=== PATIENT | female | born 1945 | race Caucasian/White ===

== ENCOUNTER 2019-05-30 17:16 | Inpatient (IN) | payer MEDICARE, OTHER, SELFPAY ==
[2019-05-30] VITALS (7 sets, daily range): BP systolic 146–181; BP diastolic 46–79; PULSE 51–67; RESP 14–20; TEMP 36.6–37.1; O2SAT 94–95; BMI 22.6
--- NOTE | 2019-05-30 17:45 | CTR_ITS ---
PROCEDURE INFORMATION: Exam: CT Head Without Contrast Exam date and time: 05/30/2019 6:30 PM Age: 74 years old Clinical indication: Pain; Dizziness; Headache; Patient HX: HX stroke TECHNIQUE: Imaging protocol: Computed tomography of the head without contrast. Total DLP: 816.83 mGy-cm Radiation optimization: All CT scans at this facility use at least one of these dose optimization techniques: automated exposure control; mA and/or kV adjustment per patient size (includes targeted exams where dose is matched to clinical indication); or iterative reconstruction. COMPARISON: No relevant prior studies available. FINDINGS: The ventricles, sulci and basilar cisterns are normal for the patient's stated age. There are mild areas of decreased attenuation in the periventricular white matter which is nonspecific but likely relates to small vessel ischemic change. There is no evidence for acute infarct. There is no evidence for mass. There is no hemorrhage. There are no extra-axial fluid collections. There is no midline shift. The skull is intact. The visualized paranasal sinuses are well aerated. There is atherosclerotic change of the cavernous carotid arteries. CT/CT head wo con* [id number] IMPRESSION: No evidence for acute infarct, mass or hemorrhage. Radiation Dose CTDIVOL = (mGy): DLP = 816.83 (mGy-cm)
[2019-05-30 18:26] LABS: Basophils % 0.2 %; Eosinophils # 0.1 10^3/uL (0.0-0.8); Eosinophils % 0.8 %; Hematocrit 38.5 % (37.0-47.0); Hemoglobin 12.9 g/dL (11.5-15.3); Lymphocytes # 3.4 10^3/uL (0.8-4.8); Lymphocytes % 34.6 %; Mean Corpuscular HGB Conc 33.5 g/dL (30.0-36.0); Mean Corpuscular Hemoglobin 30.4 pg (28.0-34.0); Mean Corpuscular Volume 90.6 fL (81-99); Mean Platelet Volume 10.7 fL (7.4-10.4); Monocytes # 0.8 10^3/uL (0.2-0.9); Monocytes % 7.9 %; Neutrophils # 5.5 10^3/uL (1.8-7.7); Neutrophils % 56.3 %; Nucleated Red Blood Cells % 0 %; Platelet Count 260 10^3/cmm (130-400); Red Blood Count 4.25 10^6/uL (4.1-5.3); Red Cell Distribution Width 12.7 % (12.1-15.1); White Blood Count 9.8 10^3/uL (4.0-10.0)
--- NOTE | 2019-05-30 18:28 | ECG_ITS ---
Measurements Intervals [place] Rate: 53 P: 66 AR: 179 QRS: 27 QRSD: 88 T: 8 QT: 437 QTc: [address] & T-WAVE ABNORMALITY No previous ECG available for comparison Electronically Signed On 05-31-2019 20:22:07 ADVERTISEMENT COMPOSITOR by Dash Beltran M.D. [email or web address]
[2019-05-30 18:44] LABS: Alanine Aminotransferase 13 U/L (0-33); Albumin Level 4.5 g/dL (3.5-5.2); Alkaline Phosphatase 115 IU/L (35-105); Aspartate Amino Transferase 15 U/L (0-32); Blood Urea Nitrogen 16 mg/dL (8-23); Calcium 9.7 mg/Dl (8.8-10.2); Carbon Dioxide 24 mmol/L (22-29); Chloride 101 mmol/L (98-107); Globulin 2.6 g/dL (1.3-4.6); Glucose 136 mg/dL (74-106); Sodium 138 mmol/L (136-145); Total Bilirubin 0.2 mg/dL (0.15-1.2); Total Protein 7.1 g/dL (6.6-8.7)
--- NOTE | 2019-05-30 19:08 | ED_ITS ---
Entered by Lisa Crane, acting as scribe for May 30, 2019 17:16 HPI - Headache General: Chief Complaint: Headache Stated Complaint: stroke like symptoms Time Seen by Provider: 05/30/19 19:10 Source: patient Mode of arrival: wheelchair Limitations: no limitations History of Present Illness: HPI Narrative: 74 yo Female presents to ED with complaint of episodes of feeling dizzy, light headed, and having headaches. Pt states that she had an episode yesterday. Pt states that she had had 2 episodes today. Pt's family states that when she arrived to the ER from [place], the patient has new left side facial droop. Pt has an NIHSS of 1. MD elicited complaint: headache Onset description: gradually Location: other (top of head) Pain scale (0-10): 6 Quality & Timing: intermittent Exacerbating factors: sitting/standing Relieving factors: nothing Associated symptoms: Reports lightheadedness and pre-syncope; Deny chest pain, fever(s), nausea, rash or vomiting Treatments prior to arrival: none Review of Systems General: Reports: 10 or more systems reviewed and unremarkable except in HPI and below Const: Denies: fever, chills or body aches Eyes: Denies: change in vision, blurry vision or blind spots ENMT: Denies: throat pain, painful swallowing, hoarseness or mouth pain Card: Reports: lightheadedness and pre-syncope; Denies: chest pain, palpitations, irregular heart rhythm or swelling of feet/ankles Resp: Denies: shortness of breath, productive cough or non-productive cough GI: Denies: abdominal pain, nausea or vomiting : Denies: flank pain, difficulty urinating, painful urination, urinary frequency or urinary urgency Musc: Denies: neck pain, back pain, extremity pain or extremity swelling Skin/Breast: Denies: rash, itching or redness Neuro: Reports: headache and dizziness; Denies: numbness in extremities or weakness in extremities PFSH ED PFSH: Statuses (acute, chronic, etc) shown below reflect problem list status as previously entered and may not be historically accurate Medical History (Updated 05/30/19 @ 22:55 by Theresa Greene MD, [facility] [place] Dyslipidemia (Acute) Supraventricular tachycardia (Acute) Tachyarrhythmia (Acute) Urinary incontinence (Acute) Uterovaginal prolapse (Acute) Surgical History (Updated 05/30/19 @ 21:54 by Delmy Triana MD) History of cardiac cath (Acute) History of vaginal hysterectomy (Acute) Hx of cholecystectomy (Acute) Hx of tubal ligation (Acute) Family History (Updated 05/30/19 @ 21:54 by Delmy Triana MD) Father CAD (coronary artery disease) Other Hypertension Social History Smoking and tobacco status: never smoked Physical Exam Const: COMMON NORMALS: no apparent distress, average body habitus, oriented x3, no limitations, healthy appearing, alert and well nourished HENMT: COMMON NORMALS: normocephalic, head/scalp atraumatic, external ears normal, EAC's normal and TM's normal bilaterally HEAD & SCALP: normocephalic and atraumatic FACE & SINUS: flattened naso-labial fold Left EXTERNAL EAR: Yes external ears normal EXTERNAL AUDITORY CANAL: EAC's normal TYMPANIC MEMBRANE: TM's normal bilaterally Eye: COMMON NORMALS: PERRL, EOMs intact bilaterally, conjunctivae normal, no scleral icterus and normal visual isidro by confrontation CONJUNCTIVA: Yes conjunctivae normal PUPIL: Yes PERRL Neck/C-Spine: COMMON NORMALS: full ROM, supple, no meningeal signs, no JVD and no carotid bruits Chest: COMMONS NORMALS: inspection of chest normal and palpation of chest normal Resp: COMMON NORMALS: normal respiratory effort, no retractions, no use of accessory muscles, clear to auscultation bilaterally and percussion normal AUSCULTATION: clear to auscultation bilaterally PERCUSSION: percussion normal Cardio: COMMON NORMALS: no JVD, regular rate, regular rhythm, S1 normal heart sound, S2 normal heart sound, no gallops, no clicks, no murmurs, no rub and peripheral pulses 2+ throughout RATE: regular rate RHYTHM: regular rhythm HEART SOUNDS: S1 normal and S2 normal PERIPHERAL PULSES: pulses 2+ throughout GI: COMMON NORMALS: normal to inspection, nondistended, normoactive bowel sounds, soft to palpation, non-tender, no hepatosplenomegaly, no masses and no bruits PALPATION: Yes soft and Yes no hepatosplenomegaly : COMMON NORMALS: Yes no CVA tenderness BLADDER/KIDNEY EXAM: Yes no CVA tenderness Back/Pelvis: COMMON NORMALS: no CVA tenderness Extremity: COMMON NORMALS: normal to inspection, full ROM, normal capillary refill, no joint enlargement, no clubbing, cyanosis or edema, no calf tenderness and no pedal edema Neuro: COMMON NORMALS: oriented x3 SENSORIUM/ORIENTATION: Yes alert MENINGEAL SIGNS: Yes no meningeal signs COORDINATION/BALANCE: qbjnxz-wa-qvkd test normal, hvzg-ja-bsvh test normal and tandem gait normal GAIT: Yes normal gait COORDINATION: dkxlso-ji-udft test normal, ffnt-hl-xqvm test normal and tandem gait normal Skin: COMMON NORMALS: no rashes or lesions noted, no wounds, skin turgor normal, no jaundice, no petechiae and no mottling GENERAL SKIN EXAM: no rashes or lesions noted and turgor normal Course Consultations: Consultation #1: Discussed patient with the neurologist on-call Dr. Barrera. After discussing NIH score with him, 1, was decided that the patient does not meet the criteria for thrombolytics. She should be admitted for a stroke work-up. Vital Signs: Vital signs: Vital Signs Temperature 97.8 F 05/30/19 17:24 Pulse Rate 54 L 05/30/19 21:47 Respiratory Rate 14 05/30/19 21:47 Blood Pressure 146/55 05/30/19 21:47 Pulse Oximetry 95 05/30/19 21:47 MDM - Headache MDM Narrative: Medical decision making narrative: 74-year-old female patient with a prior history of a CVA who presents to the emergency department with complaint of headache. While she was in the waiting room she was noticed to develop left-sided facial droop and drooling out of the left side of her mouth. NIH score was however 1. Because of a low NIH score she is admitted to the hospital overnight for stroke work-up. Lab Data: Labs: Lab Results 05/30/19 05/30/19 05/30/19 Range/Units 18:17 18:17 18:17 WBC 9.8 (4.0-10.0) 10^3/ uL RBC 4.25 (4.1-5.3) 10^6/u L Hgb 12.9 (11.5-15.3) g/dL Hct 38.5 (37.0-47.0) % MCV 90.6 (81-99) fL MCH 30.4 (28.0-34.0) pg MCHC 33.5 (30.0-36.0) g/dL RDW 12.7 (12.1-15.1) % Plt Count 260 (130-400) 10^3/c mm MPV 10.7 H (7.4-10.4) fL Neut % (Auto) 56.3 % Lymph % (Auto) 34.6 % Pine % (Auto) 7.9 % Eos % (Auto) 0.8 % Baso % (Auto) 0.2 % Neut # (Auto) 5.5 (1.8-7.7) 10^3/u L Lymph # (Auto) 3.4 (0.8-4.8) 10^3/u L Pine # (Auto) 0.8 (0.2-0.9) 10^3/u L Eos # (Auto) 0.1 (0.0-0.8) 10^3/u L Baso # (Auto) 0.0 (0.0-0.1) 10^3/u L Nucleated RBC % (a uto) 0 % Nucleated RBCs # 0.0 /100WBC PT 14.00 H (10.5-13.3) SECO NDS INR 1.04 (0.8-1.2) APTT 36.1 (23.9-36.7) SECO NDS Sodium 138 (136-145) mmol/L Potassium 4.0 (3.5-5.1) mmol/L Chloride 101 (98-107) mmol/L Carbon Dioxide 24 (22-29) mmol/L Anion Gap 17.0 (5-19) BUN 16 (8-23) mg/dL Creatinine 1.1 H (0.5-0.9) mg/dL Glucose 136 H (74-106) mg/dL POC Glucose (70-110) mg/dL Calcium 9.7 (8.8-10.2) mg/Dl Total Bilirubin 0.2 (0.15-1.2) mg/dL AST 15 (0-32) U/L ALT 13 (0-33) U/L Alkaline Phosphata se 115 H (35-105) IU/L Total Protein 7.1 (6.6-8.7) g/dL Albumin 4.5 (3.5-5.2) g/dL Globulin 2.6 (1.3-4.6) g/dL Urine Color (Yellow) Urine Appearance (CLEAR) Urine pH (5-7) Ur Specific Gravit y (1.005-1.030) Urine Protein (Negative) Urine Glucose (UA) (Normal) Urine Ketones (Negative) Urine Occult Blood (Negative) Urine Nitrate (Negative) Urine Bilirubin (NEGATIVE) Urine Urobilinogen (Negative) mg/dL Ur Leukocyte Malina ase (Negative) Urine Opiates Scre en (Negative) ng/mL Ur Barbiturates Sc reen (Negative) ng/mL Ur Phencyclidine S crn (Negative) ng/mL Ur Amphetamines Sc reen (Negative) ng/mL U Benzodiazepines Scrn (Negative) ng/mL Urine Cocaine Scre en (Negative) ng/mL U Marijuana (THC) Screen (Negative) ng/mL 05/30/19 05/30/19 05/30/19 Range/Units 20:07 20:30 20:30 WBC (4.0-10.0) 10^3/ uL RBC (4.1-5.3) 10^6/u L Hgb (11.5-15.3) g/dL Hct (37.0-47.0) % MCV (81-99) fL MCH (28.0-34.0) pg MCHC (30.0-36.0) g/dL RDW (12.1-15.1) % Plt Count (130-400) 10^3/c mm MPV (7.4-10.4) fL Neut % (Auto) % Lymph % (Auto) % Pine % (Auto) % Eos % (Auto) % Baso % (Auto) % Neut # (Auto) (1.8-7.7) 10^3/u L Lymph # (Auto) (0.8-4.8) 10^3/u L Pine # (Auto) (0.2-0.9) 10^3/u L Eos # (Auto) (0.0-0.8) 10^3/u L Baso # (Auto) (0.0-0.1) 10^3/u L Nucleated RBC % (a uto) % Nucleated RBCs # /100WBC PT (10.5-13.3) SECO NDS INR (0.8-1.2) APTT (23.9-36.7) SECO NDS Sodium (136-145) mmol/L Potassium (3.5-5.1) mmol/L Chloride (98-107) mmol/L Carbon Dioxide (22-29) mmol/L Anion Gap (5-19) BUN (8-23) mg/dL Creatinine (0.5-0.9) mg/dL Glucose (74-106) mg/dL POC Glucose 100 (70-110) mg/dL Calcium (8.8-10.2) mg/Dl Total Bilirubin (0.15-1.2) mg/dL AST (0-32) U/L ALT (0-33) U/L Alkaline Phosphata se (35-105) IU/L Total Protein (6.6-8.7) g/dL Albumin (3.5-5.2) g/dL Globulin (1.3-4.6) g/dL Urine Color Straw (Yellow) Urine Appearance Clear (CLEAR) Urine pH 6 (5-7) Ur Specific Gravit y 1.005 (1.005-1.030) Urine Protein Neg (Negative) Urine Glucose (UA) Norm (Normal) Urine Ketones Negative (Negative) Urine Occult Blood Neg (Negative) Urine Nitrate Negative (Negative) Urine Bilirubin Neg (NEGATIVE) Urine Urobilinogen Norm (Negative) mg/dL Ur Leukocyte Malina ase Negative (Negative) Urine Opiates Scre en Negative (Negative) ng/mL Ur Barbiturates Sc reen Negative (Negative) ng/mL Ur Phencyclidine S crn Negative (Negative) ng/mL Ur Amphetamines Sc reen Negative (Negative) ng/mL U Benzodiazepines Scrn Negative (Negative) ng/mL Urine Cocaine Scre en Negative (Negative) ng/mL U Marijuana (THC) Screen Negative (Negative) ng/mL Imaging Data^: CT Head: Radiologist's impression: [address] [address] [address] Scan Report Signed Patient: Linda Loaiza #: [id number] : 5Acct#:[id number] Age/Sex: 74 / FADM Date: 05/30/19 Loc: ERRoom/Bed: Attending Dr: Ordering Provider/Ordering MD: Troy West DO Date of Service: 05/30/19 Procedure(s): CT head wo con* [id number] Accession Number(s): [id number] Report Number: [id number] PROCEDURE INFORMATION: Exam: CT Head Without Contrast Exam date and time: 05/30/2019 6:30 PM Age: 74 years old Clinical indication: Pain; Dizziness; Headache; Patient HX: HX stroke TECHNIQUE: Imaging protocol: Computed tomography of the head without contrast. Total DLP: 816.83 mGy-cm Radiation optimization: All CT scans at this facility use at least one of these dose optimization techniques: automated exposure control; mA and/or kV adjustment per patient size (includes targeted exams where dose is matched to clinical indication); or iterative reconstruction. COMPARISON: No relevant prior studies available. FINDINGS: The ventricles, sulci and basilar cisterns are normal for the patient's stated age. There are mild areas of decreased attenuation in the periventricular white matter which is nonspecific but likely relates to small vessel ischemic change. There is no evidence for acute infarct. There is no evidence for mass. There is no hemorrhage. There are no extra-axial fluid collections. There is no midline shift. The skull is intact. The visualized paranasal sinuses are well aerated. There is atherosclerotic change of the cavernous carotid arteries. CT/CT head wo con* [id number] IMPRESSION: No evidence for acute infarct, mass or hemorrhage. Radiation Dose CTDIVOL = (mGy): DLP = 816.83 (mGy-cm) Dictated By:Rm Flower MD Signed By:Rm Flower MDSigned Date/Time:05/30/191900 DD/ 99 EKG Data^: EKG 1: Attestation: I personally reviewed and interpreted this EKG as follows: EKG interpretation date: 05/30/19 EKG interpretation time: 20:16 Prior EKG tracings: not available for review Interpretation: Sinus bradycardia. Heart rate 53. Mild ST depression in lead II. No other ST changes. Normal axis. EKG 2: EKG interpretation date: 05/30/19 EKG interpretation time: 22:35 Prior EKG tracings: available for review Interpretation: No changes from earlier today. Discharge Plan Discharge Patient Disposition: Placed in Observation Admit Provider: Delmy Triana Clinical Impression: Ischemic stroke Condition: Stable Coding Level of Care Code ED Furnace Brazer for Chg Fwd Exam Problem Focused The documentation recorded by the Rosa Maria najera Carmen, accurately reflects the service I personally performed and the decisions made by Jc moseley Adegoke I, MD, [facility] [place] May 30, 2019 17:16
--- NOTE | 2019-05-30 19:22 | ECG_ITS ---
Measurements Intervals [place] Rate: 53 P: 66 MA: 179 QRS: 27 QRSD: 88 T: 8 QT: 437 QTc: [address] & T-WAVE ABNORMALITY No previous ECG available for comparison Electronically Signed On 05-31-2019 20:22:12 FLEET MANAGER by Dash Beltran M.D. [id number]
[2019-05-30 19:49] LABS: INR 1.04 (0.8-1.2)
[2019-05-30 19:50] LABS: Partial Thromboplastin Time 36.1 SECONDS (23.9-36.7)
--- NOTE | 2019-05-30 20:06 | PC.NURSE ---
Stroke alert. Patient reports she has not been feeling well since this Wednesday, has had a headache and palpitations in her stomach. Patient presents to ED with complaints of headache and stroke like symptoms. While in waiting room, a family member (who just arrived to see patient) told triage nurse that patient was slurred and drooling. I asked the patient when the drooling started and she reports she didn't even know she was drooling. Patient reports she had similar symptoms 4 years ago and received TPA for that. She reports she has had sensation changes and numbness since the prior stroke. Patient is not a TPA candidate due to Last Known Normal being greater than 4.5 hours. Patient educated on stroke s/s and has no further questions.
[2019-05-30 20:12] LABS: Glucose Point of Care 100 mg/dL (70-110)
[2019-05-30 20:46] LABS: Add Urine Microscopic? NO
[2019-05-30 20:52] LABS: Amphetamines Screen Urine Negative (Negative); Barbiturates Screen Urine Negative (Negative); Benzodiazepines Screen Urine Negative (Negative); Cocaine Screen Urine Negative (Negative); Opiate Screen Urine Negative (Negative); PCP Screen Urine Negative (Negative)
[2019-05-30 20:53] LABS: THC Screen Urine Negative (Negative)
[2019-05-30 20:54] LABS: Bilirubin Urine Neg (NEGATIVE); Blood Urine Neg (Negative); Glucose Urine UA Norm (Normal); Ketones Urine Negative (Negative); Leukocyte Esterase Urine Negative (Negative); Nitrate Urine Negative (Negative); Protein Urine Neg (Negative); Specific Gravity, Urine 1.005 (1.005-1.030); Urine Appearance Clear (CLEAR); Urine Color Straw (Yellow); Urobilinogen Urine Norm (Negative); pH Urine 6 (5-7)
--- NOTE | 2019-05-30 21:48 | P.HP_ITS ---
Providers/Chief Complaint Chief Complaint: CVA History of Present Illness Alyson Loaiza is a 74 year old female who carries diagnosis of tachyarrhythmia(svt) in the past, dyslipidemia, urinary incontinence, hypertension who presented to the emergency department chief complaint of headache, left-sided facial droop. Daughter is at the bedside who is endorsing that her mother was babysitting her granddaughter all day and she has not noticed any change in her facial symmetry or speech, when her daughter came to pick her child at that time she noticed that she is suffering from stroke like symptoms left-sided facial droop, slurred speech. She was brought to ER for further evaluation secondary to NIH score of 1 TPA was not administered after ruling of hemorrhagic stroke. Patient is stating that on Wednesday she started having palpitations which she she usually does and takes atenolol for that, palpitations occur on and off without any inciting or relieving factors they would last for at least 36 hours, she has never been diagnosed with atrial fibrillation, on Wednesday she experienced dizzy spells, she experienced 2 dizzy spells on Wednesday but she never experienced any falls, loss of consciousness, fever, chills, diarrhea urinary or bowel incontinence. She is endorsing that previously she had a stroke which affected her left side of the body she gets numbness and sensory deficit of left side with mild weakness of left arm otherwise she has been pretty independent and she has been enjoying her day-to-day life, she is independent for daily activities, she drives and enjoys babysitting her granddaughters. Only symptom she experienced during this episode was headache on the right side which is currently 5/10, dull. She has not noticed any increase in her weakness of ex tremities, blurry vision. Diagnostics in ER showed hypertension, bradycardia, EKG shows sinus bradycardia, CTA head negative for hemorrhage, Not a candidate of TPA Hospital service was requested for further evaluation of stroke Review of Systems Const: Denies: fever, chills or change in appetite Eyes: Denies: change in vision ENMT: Denies: throat pain Card: Reports: palpitations, lightheadedness and pre-syncope Resp: Denies: shortness of breath GI: Denies: abdominal pain, nausea or vomiting : Denies: flank pain Musc: Denies: neck pain or back pain Skin/Breast: Denies: rash Neuro: Reports: headache, numbness in extremities, weakness in extremities, difficulty walking, dizziness and slurred speech Psych: Denies: anxiety or depression Endo: Denies: excessive urination Rajinder/Lymph: Denies: easy bruising All/Imm: Denies: hives Medications/Allergies Allergies Allergy/AdvReac Type Severity Reaction Status Date / Time No Known Allergies Allergy Verified 05/30/19 17:24 PFSH Acute PFSH: Statuses (acute, chronic, etc) shown below reflect problem list status as previously entered and may not be historically accurate Medical History (Updated 05/30/19 @ 22:47 by Delmy Triana MD) Dyslipidemia (Acute) Supraventricular tachycardia (Acute) Tachyarrhythmia (Acute) Urinary incontinence (Acute) Uterovaginal prolapse (Acute) Surgical History (Updated 05/30/19 @ 21:54 by Delmy Triana MD) History of cardiac cath (Acute) History of vaginal hysterectomy (Acute) Hx of cholecystectomy (Acute) Hx of tubal ligation (Acute) Family History (Updated 05/30/19 @ 21:54 by Delmy Triana MD) Father CAD (coronary artery disease) Other Hypertension Social History Smoking and tobacco status: never smoked Vitals/I&O/Wt Last Vital Signs Temp 97.8 F 05/30/19 17:24 Pulse 53 L 05/30/19 20:21 Resp 16 05/30/19 20:09 BP 146/54 05/30/19 20:21 Pulse Ox 95 05/30/19 20:09 Weight last 48 hrs Weight 58.967 kg Physical Exam Narrative: EXAM NARRATIVE: Appears stated age, Comfortable in her bed Left-sided facial droop with some drooling of saliva EOMI, PERRLA Motor strength 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 is weaker as compared to the right 1 which patient is stating that is chronic for her, no signs of cerebellar deficit, No dysdiadochokinesia Notable to elicit hemineglect Sensory deficit at the left ankle area Good strength of lower extremity on hip flexion and extension, plantarflexion and dorsiflexion bilaterally No tongue deviation Reflexes equivocal S1, S2 bradycardia no JVD signs of heart failure Abdomen soft nontender nondistended bowel so present Respiratory exam shows clear to auscultation without any adventitious sounds Skin exam shows no signs of ischemia gangrene or ulcer Psych: Appropriate mood and affect Data : 05/30/19 18:17 05/30/19 18:17 A&P Assessment and plan (1) Ischemic stroke: Status: Acute Code(s): I63.9 - Cerebral infarction, unspecified (2) Hypertension: Status: Acute Code(s): I10 - Essential (primary) hypertension (3) Sinus bradycardia: Status: Acute Code(s): R00.1 - Bradycardia, unspecified Additional A&P Information Nonhemorrhagic acute stroke Left-sided facial droop, with numbness and mild weakness of left-sided extremities I would allow permissive hypertension for 48 to 72 hours, hold losartan Speech evaluation in the morning, physical therapy evaluation She has been on Plavix I would use aspirin and Plavix combination for at least 21 days with high-dose statins Lipitor 80 mg CTA head and neck for vascular anatomy Because of stroke is still unknown but my suspicion for atrial fibrillation is h igh considering her history of tachyarrhythmia She might need Holter monitoring for 2-3weeks on outpatient settings Echo in the morning History of tachyarrhythmia Clinically she is in sinus bradycardia I would hold the dose of atenolol to capture her arrhythmia Dyslipidemia: I have added high-dose statins Permissive hypertension because of nonhemorrhagic stroke TIFFANY secondary to dehydration Anticipate improvement will fluid resuscitation Full code DVT prophylaxis: Heparin Attestations Medical Necessity Statement*: Anticipating her stay to cross more than 2 midnights, patient needs inpatient stay because she lives alone and with this recent stroke needs appropriate discharge planning, evaluation of stroke, PT and speech evaluation and probably Holter monitoring Time Spent in Patient Care: (>than 50% of time spent in counselling and/or direct pt care on unit) . 50 Coding Level of Care Code Acute Engineering Operations Leader for Yudy Miranda Diagnoses Ischemic stroke I63.9 Hypertension I10 Sinus bradycardia R00.1
--- NOTE | 2019-05-30 22:00 | ECG_ITS ---
Measurements Intervals [place] Rate: 53 P: 40 HI: 181 QRS: 5 QRSD: 106 T: 0 QT: 442 QTc: 419 SINUS BRADYCARDIA MINIMAL VOLTAGE CRITERIA FOR LVH, CONSIDER NORMAL VARIANT [MEETS CRITERIA IN ONE OF: R(aVL), S(V1), R(V5), R(V5/V6)+S(V1)] NONSPECIFIC ST & T-WAVE ABNORMALITY No previous ECG available for comparison Electronically Signed On 05-31-2019 20:22:32 SPARE HAND CARDING by Dash Beltran M.D. [email or web address]
[2019-05-31 00:16] LABS: Thyroid Stimulating Hormone 4.33 uIU/mL (0.27-4.20)
[2019-05-31] MEDS: heparin 5,000 unit/mL INJ 1 mL 5000 UNIT SUBCUT (00:46)
[2019-05-31] MEDS: atorvastatin 40 mg Tablet 80 MG PO (00:48)
[2019-05-31] MEDS: clopidogrel 75 mg Tablet PO (00:48)
[2019-05-31] MEDS: iodixanol 320 mg/mL 100mL Btl IV (02:24)
[2019-05-31 04:00] VITALS: BP 191/68; PULSE 63; RESP 18; TEMP 37.2; O2SAT 92
--- NOTE | 2019-05-31 04:16 | PM.TDS ---
Transfer Summary Providers Date of Admission: 05/30/19 21:29 Date of Discharge: 05/31/19 Attending Provider at Admission: Delmy Triana MD Attending Provider at Transfer: Delmy Triana MD Anticipated Date of Transfer: Anticipated date of transfer: 05/31/19 Receiving Facility & Provider: Receiving Provider: [] Receiving facility: [] Diagnoses at Discharge Discharge Diagnosis (1) Ischemic stroke: Status: Acute (2) Hypertension: Status: Acute (3) Sinus bradycardia: Status: Acute Reason for Visit Reason for Visit: Reason For Visit: CVA Hospital Course Hospital Course: Alyson Loaiza is a 74 year old female who carries diagnosis of tachyarrhythmia(svt) in the past, dyslipidemia, urinary incontinence, hypertension who presented to the emergency department chief complaint of headache, left-sided facial droop. Daughter is at the bedside who is endorsing that her mother was babysitting her granddaughter all day and at that time she had not noticed any changes in her facial symmetry or speech, but when her daughter came to pick her child in the evening she noticed that she is suffering from stroke like symptoms i.e. left-sided facial droop, slurred speech and she was dragging her right foot. She was brought to ER for further evaluation secondary to initial NIH score of 1 and nonspecific time for development of symptoms TPA was not administered after ruling of hemorrhagic stroke. Code stroke was called by ER physician. Patient is stating that on Wednesday she started having palpitations which she usually does experience and takes atenolol for that, palpitations occur on and off without any inciting or relieving factors they would last for at least 36 hours, she has never been diagnosed with atrial fibrillation, on Wednesday she experienced dizzy spells, she experienced 2 dizzy spells on Wednesday but she never experienced any falls, loss of consciousness, fever, chills, diarrhea urinary or bowel incontinence. She is endorsing that previously she had a stroke which affected her left side of the body she gets numbness and sensory deficit of left side with mild weakness of left arm otherwise she has been pretty independent and she has been enjoying her day-to-day life, she is independent for daily activities, she drives and enjoys babysitting her granddaughters. Only symptom she experienced during this episode was headache on the right side which is currently 5/10, dull. She has not noticed any increase in her weakness of extremities, blurry vision. Diagnostics in ER showed hypertension systolic blood pressure 150, bradycardia heart rate 58-60, EKG shows sinus bradycardia, CTA head negative for hemorrhage, Hospital service was requested for further evaluation of stroke, on my assessment NIH score was 5 CTA head and neck was ordered which showed cardioembolic phenomenon at right middle cerebral artery at the junction of M1 and M2, consult was contacted for interventional approach. She was accepted at [address] room [address] DEL ROSARIO accepted the patient considering NIH 5 and neuroimaging. I have not detected atrial fibrillation on EKG or on her telemetry, would continue with aspirin, Plavix and high-dose statins for now with permissive hypertension. Discharge Summary: Please review hospital course Reason of transfer: Patient has proximal right middle cerebral artery cardioembolic phenomenon which is intervene able, [facility] has accepted the patient, the services are not being provided at our hospital, considering NIH 5 and neuroimaging she is a good candidate for such procedure. 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 as compared to the right 3/5 , no signs of cerebellar deficit, No dysdiadochokinesia No hemineglect Sensory deficit present at the left ankle area Good strength of lower extremity on hip flexion and extension, plantarflexion and dorsiflexion bilaterally 4/5 No tongue deviation Reflexes equivocal S1, S2 bradycardia no JVD signs of heart failure Abdomen soft nontender nondistended bowel so present Respiratory exam shows clear to auscultation without any adventitious sounds Skin exam shows no signs of ischemia gangrene or ulcer Psych: Appropriate mood and affect TS Data Data Completed and Pending: Completed Studies During Hospitalization Category Date Time Status CT angio headneck * [id number] Rout ine Cat Scan 05/31/19 08:[address] head wo con* [id number] Urgent Cat Scan 05/30/19 17:45 Completed Pending at discharge Category Date Time Status Basic Metabolic P kerrie AM LABS Lab 05/31/19 03:15 Received Complete Blood Co unt w/Auto AM LABS Lab 05/31/19 03:15 Results US echo complete [CV echo complete* [id number]] Routine Ultrasound 05/30/19 23:42 Ordered Labs from last 24 hours 05/30/19 05/30/19 05/30/19 20:30 20:30 20:07 WBC RBC Hgb Hct MCV MCH MCHC RDW Plt Count MPV Neut % (Auto) Lymph % (Auto) [place] % (Auto) Eos % (Auto) Baso % (Auto) Neut # (Auto) Lymph # (Auto) [place] # (Auto) Eos # (Auto) Baso # (Auto) Nucleated RBC % (a uto) Nucleated RBCs # PT INR APTT Sodium Potassium Chloride Carbon Dioxide Anion Gap BUN Creatinine Glucose POC Glucose 100 Calcium Total Bilirubin AST ALT Alkaline Phosphata se Total Protein Albumin Globulin TSH Urine Color Straw Urine Appearance Clear Urine pH 6 Ur Specific Gravit y 1.005 Urine Protein Neg Urine Glucose (UA) Norm Urine Ketones Negative Urine Occult Blood Neg Urine Nitrate Negative Urine Bilirubin Neg Urine Urobilinogen Norm Ur Leukocyte Malina ase Negative Urine Opiates Scre en Negative Ur Barbiturates Sc reen Negative Ur Phencyclidine S crn Negative Ur Amphetamines Sc reen Negative U Benzodiazepines Scrn Negative Urine Cocaine Scre en Negative U Marijuana (THC) Screen Negative 05/30/19 05/30/19 05/30/19 18:17 18:17 18:17 WBC RBC Hgb Hct MCV MCH MCHC RDW Plt Count MPV Neut % (Auto) Lymph % (Auto) [place] % (Auto) Eos % (Auto) Baso % (Auto) Neut # (Auto) Lymph # (Auto) [place] # (Auto) Eos # (Auto) Baso # (Auto) Nucleated RBC % (a uto) Nucleated RBCs # PT 14.00 H INR 1.04 APTT 36.1 Sodium 138 Potassium 4.0 Chloride 101 Carbon Dioxide 24 Anion Gap 17.0 BUN 16 Creatinine 1.1 H Glucose 136 H POC Glucose Calcium 9.7 Total Bilirubin 0.2 AST 15 ALT 13 Alkaline Phosphata se 115 H Total Protein 7.1 Albumin 4.5 Globulin 2.6 TSH 4.33 H Urine Color Urine Appearance Urine pH Ur Specific Gravit y Urine Protein Urine Glucose (UA) Urine Ketones Urine Occult Blood Urine Nitrate Urine Bilirubin Urine Urobilinogen Ur Leukocyte Malina ase Urine Opiates Scre en Ur Barbiturates Sc reen Ur Phencyclidine S crn Ur Amphetamines Sc reen U Benzodiazepines Scrn Urine Cocaine Scre en U Marijuana (THC) Screen 05/30/19 18:17 WBC 9.8 RBC 4.25 Hgb 12.9 Hct 38.5 MCV 90.6 MCH 30.4 MCHC 33.5 RDW 12.7 Plt Count 260 MPV 10.7 H Neut % (Auto) 56.3 Lymph % (Auto) 34.6 [place] % (Auto) 7.9 Eos % (Auto) 0.8 Baso % (Auto) 0.2 Neut # (Auto) 5.5 Lymph # (Auto) 3.4 [place] # (Auto) 0.8 Eos # (Auto) 0.1 Baso # (Auto) 0.0 Nucleated RBC % (a uto) 0 Nucleated RBCs # 0.0 PT INR APTT Sodium Potassium Chloride Carbon Dioxide Anion Gap BUN Creatinine Glucose POC Glucose Calcium Total Bilirubin AST ALT Alkaline Phosphata se Total Protein Albumin Globulin TSH Urine Color Urine Appearance Urine pH Ur Specific Gravit y Urine Protein Urine Glucose (UA) Urine Ketones Urine Occult Blood Urine Nitrate Urine Bilirubin Urine Urobilinogen Ur Leukocyte Malina ase Urine Opiates Scre en Ur Barbiturates Sc reen Ur Phencyclidine S crn Ur Amphetamines Sc reen U Benzodiazepines Scrn Urine Cocaine Scre en U Marijuana (THC) Screen Addt'l Data from Hospital Stay: [place] [address] CT Scan Report Signed with Fiona Patient: Linda Loaiza #: [id number] : 5Acct#:[id number] Age/Sex: 74 / FADM Date: 05/30/19 Loc: [facility]/Bed: [address]: Delmy Triana MD Ordering Provider/Ordering MD: Delmy Triana MD Date of Service: 05/31/19 Procedure(s): CT angio headneck* [id number] Accession Number(s): [id number] Report Number: [id number]/CT angio headneck* [id number] THIS REPORT CONTAINS FINDINGS THAT MAY BE CRITICAL TO PATIENT CARE. The findings were verbally communicated via telephone conference with Delmy Triana at 2:51 AM RF DESIGN ENGINEER on 05/31/2019. The findings were acknowledged and understood. Radiation Dose CTDIVOL = (mGy): DLP = 1778.79~1778.79 (mGy-cm) Addendum Dictated By: Samy Spears MD Addendum Signed By: Samy Spears MDSigned Date/Time:05/31/19 0254 Addendum Cosigned By: PROCEDURE INFORMATION: Exam: CT Angiography Head With Contrast Exam date and time: 05/31/2019 2:04 AM Age: 74 years old Clinical indication: Condition or disease; Other: CVA; Additional info: Stroke TECHNIQUE: Imaging protocol: Computed tomography angiography of the head with intravenous contrast. 3D rendering: MIP and/or 3D reconstructed images were created by the technologist. Total DLP: 1778.79 mGy-cm Radiation optimization: All CT scans at this facility use at least one of these dose optimization techniques: automated exposure control; mA and/or kV adjustment per patient size (includes targeted exams where dose is matched to clinical indication); or iterative reconstruction. Contrast material: VISI; Contrast volume: 95 ml; Contrast route: 20G; COMPARISON: CT head wo con* [id number] 05/30/2019 6:57 PM FINDINGS: Right internal carotid artery: Mild atheromatous change right internal carotid artery. Right anterior cerebral artery: Unremarkable. No occlusion or significant stenosis. No aneurysm. Right middle cerebral artery: Thromboembolic occlusion of segments of right middle cerebral artery beginning at junction of M1 and M2 distribution as well as branches in sylvian fissure. Right posterior cerebral artery: Unremarkable. No occlusion or significant stenosis. No aneurysm. Right vertebral artery: Unremarkable. No occlusion or significant stenosis. No aneurysm. Left internal carotid artery: Mild atheromatous change left internal carotid artery. Left anterior cerebral artery: Unremarkable. No occlusion or significant stenosis. No aneurysm. Left middle cerebral artery: Unremarkable. No occlusion or significant stenosis. No aneurysm. Left posterior cerebral artery: Unremarkable. No occlusion or significant stenosis. No aneurysm. Left vertebral artery: Unremarkable. No occlusion or significant stenosis. No aneurysm. Basilar artery: Unremarkable. No occlusion or significant stenosis. No aneurysm. IMPRESSION: Thromboembolic occlusion in the right middle cerebral distribution. PROCEDURE INFORMATION: Exam: CT Angiography Neck With Contrast Exam date and time: 05/31/2019 2:04 AM Age: 74 years old Clinical indication: Condition or disease; Other: CVA; Additional info: Stroke TECHNIQUE: Imaging protocol: Computed tomography angiography of the neck with intravenous contrast. 3D rendering: MIP and/or 3D reconstructed images were created by the technologist. Total DLP: 1778.79 mGy-cm Radiation optimization: All CT scans at this facility use at least one of these dose optimization techniques: automated exposure control; mA and/or kV adjustment per patient size (includes targeted exams where dose is matched to clinical indication); or iterative reconstruction. Contrast material: VISI; Contrast volume: 95 ml; Contrast route: 20G; COMPARISON: CT head wo con* [id number] 05/30/2019 6:57 PM FINDINGS: VASCULATURE: Right common carotid artery: Unremarkable. No stenosis. No dissection or occlusion. Right internal carotid artery: Minimal atheromatous change right internal carotid artery. Right external carotid artery: Unremarkable. No occlusion or stenosis of the origin. Right vertebral artery: Mild atheromatous change right vertebral artery. Left common carotid artery: Unremarkable. No stenosis. No dissection or occlusion. Left internal carotid artery: Moderate atheromatous change with narrowing up to 50% proximal left internal carotid artery. Left external carotid artery: Unremarkable. No occlusion or stenosis of the origin. Left vertebral artery: Mild atheromatous change left vertebral artery. NECK: Bones/joints: No acute fracture. Soft tissues: Normal. No significant soft tissue swelling. CT/CT angio headneck* [id number] IMPRESSION: Moderate atheromatous change with narrowing at 50% proximal left internal carotid artery. No acute findings. Vitals: Last Vital Signs Temp 98.7 F 05/30/19 23:54 Pulse 54 L 05/30/19 23:54 Resp 20 H 05/30/19 23:54 BP 170/77 05/30/19 23:54 Pulse Ox 94 05/30/19 23:54 TS Medications Medications Home Medications atenolol 50 mg PO DAILY 05/31/19 [History Confirmed 05/31/19] atenolol 100 mg PO DAILY 05/31/19 [History Confirmed 05/31/19] clopidogrel 75 mg PO DAILY 05/31/19 [History Confirmed 05/31/19] losartan 25 mg PO DAILY 05/31/19 [History Confirmed 05/31/19] omeprazole 20 mg PO DAILY 05/31/19 [History Confirmed 05/31/19] simvastatin 40 mg PO DAILY 05/31/19 [History Confirmed 05/31/19] Active Medications Aspirin (Aspirin Ec) 81 mg PO DAILY ON LICENSE OF [facility] Heparin Sodium (Beef Lung) (Heparin) 5,000 unit SUBCUT Q8H ON LICENSE OF [facility] Last Admin: 05/31/19 00:46 Dose: 5,000 unit Documented by: Plavix 75 mg daily Lipitor 80 mg daily Medications held: Atenolol, losartan, omeprazole Discharge Plan Discharge Patient Disposition: Home, Self-Care Condition: Stable Prescriptions: Continued clopidogrel 75 mg tablet 75 mg PO DAILY RF: 0 Discontinued atenolol 50 mg Tablet 50 mg PO DAILY RF: 0 losartan 25 mg tablet 25 mg PO DAILY RF: 0 omeprazole 20 mg capsule,delayed release(DR/EC) 20 mg PO DAILY RF: 0 simvastatin 40 mg tablet 40 mg PO DAILY RF: 0 atenolol 100 mg tablet 100 mg PO DAILY RF: 0 Discharge Orders: Transfer Out of Facility (Order); Ordered 05/31/19 Ordered By: Delmy Triana Discharge Diet: Low Fat Discharge Activity: Use walker/crutches as instructed Transfer Attestations Time Spent in Transfer Care*: greater than 30 min Status at Transfer: Cognitive status at transfer: cognitively intact, Behavioral status at transfer: cooperative, Functional status at transfer: other assisted ambulation Quality Metrics Clinical Quality Measures: During this hospital stay, did patient experience: Stroke Contraindication to Antithrombotic: Other (Patient is going for intervention at [facility] would avoid adding anticoagulants for now no evidence of atrial fibrillation so far) Contraindication to Anticoagulation: Patient transfer Contraindication to Statin: Statin prescribed Coding Level of Care Code Acute Manager Search Engine for Yudy Miranda Diagnoses Ischemic stroke I63.9 Hypertension I10 Sinus bradycardia R00.1
--- NOTE | 2019-05-31 04:19 | PC.NURSE ---
Report called to Abhi Moreno at [facility] at this time.
[2019-05-31 04:20] LABS: Basophils % 0.3 %; Eosinophils % 0.5 %; Hematocrit 39.5 % (37.0-47.0); Hemoglobin 13.3 g/dL (11.5-15.3); Lymphocytes # 2.4 10^3/uL (0.8-4.8); Lymphocytes % 31.8 %; Mean Corpuscular HGB Conc 33.7 g/dL (30.0-36.0); Mean Corpuscular Hemoglobin 31.7 pg (28.0-34.0); Mean Corpuscular Volume 94.3 fL (81-99); Mean Platelet Volume 11.3 fL (7.4-10.4); Monocytes # 0.6 10^3/uL (0.2-0.9); Monocytes % 8.4 %; Neutrophils # 4.4 10^3/uL (1.8-7.7); Neutrophils % 58.9 %; Nucleated Red Blood Cells % 0 %; Platelet Count 236 10^3/cmm (130-400); Red Blood Count 4.19 10^6/uL (4.1-5.3); Red Cell Distribution Width 12.7 % (12.1-15.1); White Blood Count 7.5 10^3/uL (4.0-10.0)
[2019-05-31 04:29] LABS: Anion Gap 16.8 (5-19); Blood Urea Nitrogen 13 mg/dL (8-23); Calcium 9.7 mg/Dl (8.8-10.2); Carbon Dioxide 23 mmol/L (22-29); Chloride 102 mmol/L (98-107); Glucose 113 mg/dL (74-106); Potassium 3.8 mmol/L (3.5-5.1); Sodium 138 mmol/L (136-145)
[2019-05-31 06:59] LABS: Glucose Point of Care 95 mg/dL (70-110)
[2019-05-31] MEDS: LORazepam 0.5 mg Tablet PO (07:29)
--- NOTE | 2019-05-31 08:00 | CTR_ITS ---
PROCEDURE INFORMATION: Exam: CT Angiography Head With Contrast Exam date and time: 05/31/2019 2:04 AM Age: 74 years old Clinical indication: Condition or disease; Other: CVA; Additional info: Stroke TECHNIQUE: Imaging protocol: Computed tomography angiography of the head with intravenous contrast. 3D rendering: MIP and/or 3D reconstructed images were created by the technologist. Total DLP: 1778.79 mGy-cm Radiation optimization: All CT scans at this facility use at least one of these dose optimization techniques: automated exposure control; mA and/or kV adjustment per patient size (includes targeted exams where dose is matched to clinical indication); or iterative reconstruction. Contrast material: VISI; Contrast volume: 95 ml; Contrast route: 20G; COMPARISON: CT head wo con* [id number] 05/30/2019 6:57 PM FINDINGS: Right internal carotid artery: Mild atheromatous change right internal carotid artery. Right anterior cerebral artery: Unremarkable. No occlusion or significant stenosis. No aneurysm. Right middle cerebral artery: Thromboembolic occlusion of segments of right middle cerebral artery beginning at junction of M1 and M2 distribution as well as branches in sylvian fissure. Right posterior cerebral artery: Unremarkable. No occlusion or significant stenosis. No aneurysm. Right vertebral artery: Unremarkable. No occlusion or significant stenosis. No aneurysm. Left internal carotid artery: Mild atheromatous change left internal carotid artery. Left anterior cerebral artery: Unremarkable. No occlusion or significant stenosis. No aneurysm. Left middle cerebral artery: Unremarkable. No occlusion or significant stenosis. No aneurysm. Left posterior cerebral artery: Unremarkable. No occlusion or significant stenosis. No aneurysm. Left vertebral artery: Unremarkable. No occlusion or significant stenosis. No aneurysm. Basilar artery: Unremarkable. No occlusion or significant stenosis. No aneurysm. IMPRESSION: Thromboembolic occlusion in the right middle cerebral distribution. PROCEDURE INFORMATION: Exam: CT Angiography Neck With Contrast Exam date and time: 05/31/2019 2:04 AM Age: 74 years old Clinical indication: Condition or disease; Other: CVA; Additional info: Stroke TECHNIQUE: Imaging protocol: Computed tomography angiography of the neck with intravenous contrast. 3D rendering: MIP and/or 3D reconstructed images were created by the technologist. Total DLP: 1778.79 mGy-cm Radiation optimization: All CT scans at this facility use at least one of these dose optimization techniques: automated exposure control; mA and/or kV adjustment per patient size (includes targeted exams where dose is matched to clinical indication); or iterative reconstruction. Contrast material: VISI; Contrast volume: 95 ml; Contrast route: 20G; COMPARISON: CT head wo con* [id number] 05/30/2019 6:57 PM FINDINGS: VASCULATURE: Right common carotid artery: Unremarkable. No stenosis. No dissection or occlusion. Right internal carotid artery: Minimal atheromatous change right internal carotid artery. Right external carotid artery: Unremarkable. No occlusion or stenosis of the origin. Right vertebral artery: Mild atheromatous change right vertebral artery. Left common carotid artery: Unremarkable. No stenosis. No dissection or occlusion. Left internal carotid artery: Moderate atheromatous change with narrowing up to 50% proximal left internal carotid artery. Left external carotid artery: Unremarkable. No occlusion or stenosis of the origin. Left vertebral artery: Mild atheromatous change left vertebral artery. NECK: Bones/joints: No acute fracture. Soft tissues: Normal. No significant soft tissue swelling. CT/CT angio headneck* [id number] IMPRESSION: Moderate atheromatous change with narrowing at 50% proximal left internal carotid artery. No acute findings. COMMENT: Reference per NASCET criteria for degree of stenosis: Mild: less than 50% stenosis. Moderate: 50-69% stenosis. Severe: 70-94% stenosis. Near occlusion: 95-99% stenosis. Radiation Dose CTDIVOL = (mGy): DLP = 1778.79~1778.79 (mGy-cm)
[2019-05-31 15:36] VITALS: BP 191/68; PULSE 63; RESP 18; TEMP 37.2; O2SAT 92
--- NOTE | 2019-05-31 23:42 | USCV_ITS ---
Alyson Loaiza Age: 74 Gender: F : 1945 Exam Date: 05/31/2019 06:03 Ordering Phys: Delmy Triana MD Technologist: Betty Rebolledo Exam Location: [facility] Indication: CVA BP: / HR: 61 Rhythm: Sinus Technical Quality: Adequate MEASUREMENTS (Male / Female) Normal Values 2D ECHO LV Diastolic Diameter PLAX 4.0 cm 4.2 - 5.9 / 3.9 - 5.3 cm LV Systolic Diameter PLAX 2.3 cm IVS Diastolic Thickness 1.1 cm 0.6 - 1.0 / 0.6 - 0.9 cm IVS Systolic Thickness 1.5 cm LVPW Diastolic Thickness 0.9 cm 0.6 - 1.0 / 0.6 - 0.9 cm LVPW Systolic Thickness 1.5 cm LVOT Diameter 2.0 cm LV Ejection Fraction 2D Teich 73.1 % LV Ejection Fraction MOD 2C 78.2 % LV Ejection Fraction 2C AL 77.9 % LA Diameter 4.0 cm LA Width 3.2 cm LA Height 4.7 cm RA Width 3.2 cm RA Height 4.1 cm Aorta at Sinotubular Diameter 2.5 cm M-MODE LV Diastolic Diameter MM 5.0 cm 4.2 - 5.9 / 3.9 - 5.3 cm LV Systolic Diameter MM 2.8 cm LV Ejection Fraction MM Teich 75.3 % IVS Diastolic Thickness MM 0.8 cm 0.6 - 1.0 / 0.6 - 0.9 cm IVS Systolic Thickness MM 1.2 cm LVPW Diastolic Thickness MM 1.1 cm 0.6 - 1.0 / 0.6 - 0.9 cm LVPW Systolic Thickness MM 1.5 cm Aortic Annulus Diameter 2.7 cm LA Ao Ratio MM 1.5 MV E Point Septal Separation 0.1 cm DOPPLER AV Peak Velocity 137.0 cm/s LVOT Peak Velocity 94.0 cm/s AV Area Cont Eq vti 2.3 cm squared AV Area Cont Eq pk 2.1 cm squared MV Area PHT 2.6 cm squared Mitral E to A Ratio 1.2 MV E' Velocity 8.0 cm/s Mitral E to MV E' Ratio 11.3 Mitral E to LV E' Lateral Ratio 13.8 Mitral E to LV E' Septal Ratio 9.6 TR Peak Velocity 256.2 cm/s TR Peak Gradient 26.3 mmHg TR Mean Velocity 206.2 cm/s TR Mean Gradient 17.7 mmHg TR Velocity Time Integral 85.9 cm TV Peak E Velocity 54.0 cm/s Right Atrial Pressure 3.0 mmHg Pulmonary Artery Systolic Pressu 29.3 mmHg PV Peak Velocity 108.0 cm/s RV Acceleration Time 0.1 s RV Ejection Time 0.3 s RV AcT/ET 0.4 FINDINGS Left Ventricle Normal left ventricular size, systolic function and wall thickness, with no regional wall motion abnormalities. Normal left ventricular wall thickness. Normal diastolic filling pattern. Left ventricular ejection fraction is estimated at 60 %. Right Ventricle Normal right ventricular size and systolic function. Normal right ventricular systolic pressure. Right Atrium The right atrium is normal in size. Left Atrium Mildly increased left atrial size. Mitral Valve Structurally normal mitral valve. Trace mitral valve regurgitation. Aortic Valve Structurally normal trileaflet aortic valve. No aortic valve stenosis. Mild aortic valve regurgitation. Tricuspid Valve Structurally normal tricuspid valve. [id number] tricuspid valve regurgitation. Pulmonic Valve Structurally normal pulmonic valve without significant stenosis. There is no pulmonic regurgitation. Pericardium Normal pericardium without effusion. Aorta Normal ascending aorta dimension. CONCLUSIONS Normal left ventricular size, systolic function and wall thickness, with no regional wall motion abnormalities. Normal left ventricular wall thickness. Normal diastolic filling pattern. Left ventricular ejection fraction is estimated at 60 %. Mildly increased left atrial size. Structurally normal mitral valve. Trace mitral valve regurgitation. Structurally normal trileaflet aortic valve. No aortic valve stenosis. Mild aortic valve regurgitation. There are no prior echocardiogram studies to compare. Dr. Cristobal Espinal MD (Electronically Signed) Final Date: 31 May 2019 08:37 S
== END 2019-05-31 07:30 | disposition short-term general hospital (02) | DRG 65 ==
LOC: ER 21:58 → MEDSURG 22:02
PROVIDERS: Family Medicine; Admitting Provider Internal Medicine; Emergency Provider Family Medicine; Family Provider Family Medicine; Visit Provider Family Medicine
DX: I63.411 Cerebral infarction due to embolism of right middle cerebral artery (principal); N17.9 Acute kidney failure, unspecified; I47.1 Supraventricular tachycardia; E78.5 Hyperlipidemia, unspecified; R32 Unspecified urinary incontinence; I10 Essential (primary) hypertension; R29.810 Facial weakness; R47.81 Slurred speech; E86.0 Dehydration; R29.705 NIHSS score 5
CPT/HCPCS: 12345; 36415; 36416; 70450; 70496; 70498; 80048; 80053; 80307; 81003; 82962; 84443; 85025; 85610; 85730; 93005; 93306; 96372; 99284; G0378; J0131; J1644; Q9967

== ENCOUNTER → 2021-01-27 16:25 | Outpatient (BNVA) | payer MEDICARE, OTHER, SELFPAY | PROVIDERS: Family Provider Family Medicine; PCP Family Medicine; Referring Provider Family Medicine; Visit Provider Nurse Practitioner Family | DX: N30.90 Cystitis, unspecified without hematuria (principal) | CPT/HCPCS: 81003; 87086 ==

== ENCOUNTER → 2021-03-11 09:59 | Outpatient (BNVA) | payer MEDICARE, OTHER, SELFPAY | PROVIDERS: Family Provider Family Medicine; PCP Family Medicine; Visit Provider Urology | DX: N39.0 Urinary tract infection, site not specified (principal) | CPT/HCPCS: 81003 ==

== ENCOUNTER → 2021-09-16 13:35 | Outpatient (BNVA) | payer MEDICARE, OTHER, SELFPAY | PROVIDERS: Family Provider Family Medicine; PCP Family Medicine; Visit Provider Internal Medicine | DX: I48.91 Unspecified atrial fibrillation (principal); I10 Essential (primary) hypertension; Z86.73 Personal history of transient ischemic attack (TIA), and cerebral infarction without residual deficits; Z95.0 Presence of cardiac pacemaker; Z79.01 Long term (current) use of anticoagulants | CPT/HCPCS: 99214 ==

== ENCOUNTER → 2022-01-16 09:37 | Outpatient (BNVA) | payer MEDICARE, OTHER, SELFPAY | PROVIDERS: Family Provider Family Medicine; PCP Family Medicine; Visit Provider Internal Medicine | DX: Z45.010 Encounter for checking and testing of cardiac pacemaker pulse generator [battery] (principal) | CPT/HCPCS: 93280 ==

== ENCOUNTER 2022-02-15 12:11 | Inpatient (IN) | payer MEDICARE, OTHER, SELFPAY ==
[2022-02-15] VITALS (12 sets, daily range): BP systolic 85–125; BP diastolic 46–87; PULSE 62–138; RESP 14–20; TEMP 36.4–37.1; O2SAT 92–98; BMI 22.6
--- NOTE | 2022-02-15 12:21 | ED_ITS ---
HPI - General Adult General: Chief complaint: Nausea/Vomiting/Diarrhea Stated complaint: GENERAL WEAKNESS; N/V/D Time Seen by Provider: 02/15/22 12:17 History of Present Illness: 76F w/ hx of atrial fibrillation on eliquis, HLD, recurrent UTI, prior stroke without any neurological symptoms presenting to the ED for concerns of diarrhea x 4 days. Patient tells me that she has been having diarrhea for the last 4 days including up to 12 episodes of loose/watery bowel. Patient tells me he she has no focal abdominal pain nausea/vomiting, chest pressure, cough, no sore throat fever or chills. She denies any recent travel or recent antibiotics. Patient reports that her neighbor was sick at home with a cough yesterday. Onset:3-4 days ago Duration:ongoing Location:home Severity:moderate Associated symptoms: Deny chest pain, dyspnea, nausea, rash, palpitations or vomiting Review of Systems Const: Denies: fever(s) or chills Eyes: Denies: change in vision ENMT: Denies: mouth pain Card: Denies: chest pain or palpitations Resp: Denies: dyspnea or non-productive cough GI: Reports: diarrhea; Denies: abdominal pain, nausea or vomiting : Denies: dysuria Musc: Denies: extremity pain Skin/Breast: Denies: rash or new lesions Neuro: Denies: weakness in extremities Psych: Reports: other (Normal mood) Rajinder/Lymph: Denies: easy bruising PFS ED PFSH: Medical History Atrial fibrillation Dyslipidemia Hx of cardiac pacemaker Ischemic stroke Recurrent UTI Supraventricular tachycardia Tachyarrhythmia Urinary incontinence Uterovaginal prolapse Surgical History History of cardiac cath History of vaginal hysterectomy Hx of cholecystectomy Hx of tubal ligation Family History Father CAD (coronary artery disease) Mother Cancer MALIGNANT NEOPLASM OF LIVER, PRIMARY Hypertension Social History Smoking and tobacco status: never smoked Alcohol intake: never Marital status: / Current occupational status: retired Physical Exam Const: COMMON NORMALS: alert HENMT: COMMON NORMALS: atraumatic HEAD & SCALP: atraumatic Eye: COMMON NORMALS: EOMs intact bilaterally and conjunctivae normal CONJUNCTIVA: Yes conjunctivae normal Neck/C-Spine: COMMON NORMALS: full ROM and supple Resp: COMMON NORMALS: normal respiratory effort and clear to auscultation bilaterally AUSCULTATION: clear to auscultation bilaterally Cardio: OTHER: +irregular tachycarida GI: COMMON NORMALS: Soft to palpation and non-tender PALPATION: Yes Soft to palpation OTHER: No focal TTP. NO guarding rebound, guarding, rigidity. No CVA tenderness to percussion. Neg Sanchez/Neg McBurney's point tenderness, no suprabupic tenderness to palpation. Extremity: COMMON NORMALS: full ROM Neuro: SENSORIUM/ORIENTATION: Yes alert MOTOR EXAM: No Abnormal motor strength present and Other motor observations present (no focal motor deficits) Psych: COMMON NORMALS: speech normal SPEECH: Yes normal speech MOOD & AFFECT: Yes euthymic mood Course Vital Signs: Vital signs: Vital Signs Temperature 98.8 F 02/15/22 12:12 Pulse Rate 79 02/15/22 14:22 Respiratory Rate 14 02/15/22 14:22 Blood Pressure 106/46 02/15/22 14:22 Pulse Oximetry 92 02/15/22 14:22 Oxygen Delivery Me thod 02/15/22 14:22 MDM - General Adult Medical Decision Making 76F w/ hx of atrial fibrillation on eliquis, HLD, recurrent UTI, prior stroke without any neurological symptoms presenting to the ED for concerns of diarrhea x 4 days. On physical exam, patient is noted to have irregular tachycardia. Patient has dry mucous membrane. On the rn cardiac, patient was noted in atrial fibrillation with heart rate to the 140s to 150s. Patient received IV Cardizem x2, p.o. Cardizem, 500 cc of fluids with improvement heart rate to the low 90s. Troponin x2 with delta greater than 10. EKG did not show any ischemia. Patient was observed to continue being atrial fibrillation with heart rate in the 90s to 120s. Patient will be admitted to hospital for management of dehydration, atrial fibrillation with RVR and troponin elevation. Disposition: admission Lab Data : 02/15/22 12:39 02/15/22 12:39 Radiology Impressions Chest X-Ray 02/15/22 12:21 IMPRESSION: 1. No acute findings. 2. Cardiac device left anterior chest Laboratory Results WBC 5.2 10^3/uL (4.0-10.0) 02/15/22 12:39 RBC 4.99 10^6/uL (4.1-5.3) 02/15/22 12:39 Hgb 15.6 g/dL (11.5-15.3) H 02/15/22 12:39 Hct 46.6 % (37.0-47.0) 02/15/22 12:39 MCV 93.4 fl (81-99) 02/15/22 12:39 MCH 31.3 pg (28.0-34.0) 02/15/22 12:39 MCHC 33.5 g/dL (30.0-36.0) 02/15/22 12:39 RDW 13.2 % (12.1-15.1) 02/15/22 12:39 Plt Count 180 10^3/cmm (130-400) 02/15/22 12:39 MPV 11.6 fL (7.4-10.4) H 02/15/22 12:39 Neut % (Auto) 52.7 % 02/15/22 12:39 Lymph % (Auto) 41.1 % 02/15/22 12:39 Mckenzie % (Auto) 5.6 % 02/15/22 12:39 Eos % (Auto) 0.2 % 02/15/22 12:39 Baso % (Auto) 0.2 % 02/15/22 12:39 Neut # (Auto) 2.73 10^3/uL (1.8-7.7) 02/15/22 12:39 Lymph # (Auto) 2.1 10^3/uL (0.8-4.8) 02/15/22 12:39 Mckenzie # (Auto) 0.3 10^3/uL (0.2-0.9) 02/15/22 12:39 Eos # (Auto) 0.0 10^3/uL (0.0-0.8) 02/15/22 12:39 Baso # (Auto) 0.0 10^3/uL (0.0-0.1) 02/15/22 12:39 Nucleated RBC % (auto) 0 % 02/15/22 12:39 Nucleated RBCs # 0.0 /100WBC 02/15/22 12:39 Sodium 135 mmol/L (136-145) L 02/15/22 12:39 Potassium 3.6 mmol/L (3.5-5.1) 02/15/22 12:39 Chloride 98 mmol/L (98-107) 02/15/22 12:39 Carbon Dioxide 19 mmol/L (22-29) L 02/15/22 12:39 Anion Gap 21.6 (5-19) H 02/15/22 12:39 BUN 15 mg/dL (8-23) 02/15/22 12:39 Creatinine 1.0 mg/dL (0.5-0.9) H 02/15/22 12:39 GFR Calculation Not Reportable 02/15/22 12:39 Glucose 117 mg/dL (65-115) H 02/15/22 12:39 Calculated Osmolality 282 mOsm/kg (285-295) L 02/15/22 12:39 Calcium 9.1 mg/dL (8.5-10.5) 02/15/22 12:39 Total Bilirubin 0.3 mg/dL (0.15-1.2) 02/15/22 12:39 AST 33 U/L (0-32) H 02/15/22 12:39 ALT 23 U/L (0-33) 02/15/22 12:39 Alkaline Phosphatase 117 U/L (35-105) H 02/15/22 12:39 Troponin T Baseline 17 ng/L (0-10) H 02/15/22 12:39 Troponin T 120 Minute 28.69 ng/L (0-10) H 02/15/22 14:42 Delta Troponin T 11.69 ABS# (0-10) H* 02/15/22 14:42 Total Protein 7.6 g/dL (6.6-8.7) 02/15/22 12:39 Albumin 4.5 g/dL (3.5-5.2) 02/15/22 12:39 Globulin 3.1 g/dL (1.3-4.6) 02/15/22 12:39 Lipase 77 U/L (13-60) H 02/15/22 12:39 Imaging Data Other Imaging: Radiologist's impression: [address] [address] XRay Report Signed Patient: Alyson Loaiza Unit #: [id number] : 1945 Age/Sex: 76 / F ADM Date: 02/15/22 Loc: ER Room/Bed: Attending Dr: Ordering Provider/Ordering MD: Deisy Michel MD Date of Service: 02/15/22 Procedure(s): XR chest 1V portable [id number] Accession Number(s): [id number] Report Number: [id number] PROCEDURE INFORMATION: Exam: XR Chest Exam date and time: 02/15/2022 12:46 PM Age: 76 years old Clinical indication: Pain; Chest pressure; Prior surgery; Surgery type: Pacemaker; Additional info: Abd pain TECHNIQUE: Imaging protocol: Radiologic exam of the chest. Views: 1 view. COMPARISON: CT angio headneck* [id number] 05/31/2019 2:27 AM FINDINGS: Tubes, catheters and devices: Cardiac device left anterior chest Lungs: Unremarkable. No consolidation. Pleural spaces: Unremarkable. No pleural effusion. No pneumothorax. Heart/Mediastinum: Unremarkable. No cardiomegaly. Bones/joints: Unremarkable. XR/XR chest 1V portable [id number] IMPRESSION: 1. No acute findings. 2. Cardiac device left anterior chest ? Dictated By: Ronal White Signed By: Ronal White Signed Date/Time: 02/15/22 1457 Discharge Plan Discharge Patient Disposition: Admitted As Inpatient Clinical Impression: Atrial fibrillation with RVR, Elevated troponin, Generalized weakness Condition: Stable Coding Level of Care Code ED Communications Superintendent for Chg Fwd Exam Comprehensive
--- NOTE | 2022-02-15 12:21 | XRR_ITS ---
PROCEDURE INFORMATION: Exam: XR Chest Exam date and time: 02/15/2022 12:46 PM Age: 76 years old Clinical indication: Pain; Chest pressure; Prior surgery; Surgery type: Pacemaker; Additional info: Abd pain TECHNIQUE: Imaging protocol: Radiologic exam of the chest. Views: 1 view. COMPARISON: CT angio headneck* [id number] 05/31/2019 2:27 AM FINDINGS: Tubes, catheters and devices: Cardiac device left anterior chest Lungs: Unremarkable. No consolidation. Pleural spaces: Unremarkable. No pleural effusion. No pneumothorax. Heart/Mediastinum: Unremarkable. No cardiomegaly. Bones/joints: Unremarkable. XR/XR chest 1V portable [id number] IMPRESSION: 1. No acute findings. 2. Cardiac device left anterior chest
--- NOTE | 2022-02-15 12:23 | ECG_ITS ---
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 Measurements Intervals [place] Rate: 148 P: OR: QRS: -7 QRSD: 90 T: 53 QT: 286 QTc: 449 Interpretive Statements ATRIAL FIBRILLATION WITH RAPID VENTRICULAR RESPONSE MODERATE ST DEPRESSION [0.05+ mV ST DEPRESSION] Compared to ECG 05/30/2019 22:34:47 ST (T wave) deviation now present Sinus bradycardia no longer present T-wave abnormality no longer present Electronically Signed On 02-15-2022 18:23:19 CDT by Dash Beltran M.D. [id number] f
[2022-02-15] MEDS: sodium chloride 0.9% 500 ML IV (12:52)
[2022-02-15] MEDS: dilTIAZem 5 mg/mL SDV 5 mL 20 MG IVP (12:53)
[2022-02-15] MEDS: dilTIAZem 60 mg Tablet PO (12:53)
[2022-02-15 12:58] LABS: Basophils % 0.2 %; Eosinophils % 0.2 %; Hematocrit 46.6 % (37.0-47.0); Hemoglobin 15.6 g/dL (11.5-15.3); Lymphocytes # 2.1 10^3/uL (0.8-4.8); Lymphocytes % 41.1 %; Mean Corpuscular HGB Conc 33.5 g/dL (30.0-36.0); Mean Corpuscular Hemoglobin 31.3 pg (28.0-34.0); Mean Corpuscular Volume 93.4 fl (81-99); Mean Platelet Volume 11.6 fL (7.4-10.4); Monocytes # 0.3 10^3/uL (0.2-0.9); Monocytes % 5.6 %; Neutrophils # 2.73 10^3/uL (1.8-7.7); Neutrophils % 52.7 %; Nucleated Red Blood Cells % 0 %; Platelet Count 180 10^3/cmm (130-400); Red Blood Count 4.99 10^6/uL (4.1-5.3); Red Cell Distribution Width 13.2 % (12.1-15.1); White Blood Count 5.2 10^3/uL (4.0-10.0)
[2022-02-15 13:25] LABS: Alanine Aminotransferase 23 U/L (0-33); Albumin Level 4.5 g/dL (3.5-5.2); Alkaline Phosphatase 117 U/L (35-105); Anion Gap 21.6 (5-19); Aspartate Amino Transferase 33 U/L (0-32); Blood Urea Nitrogen 15 mg/dL (8-23); Calcium 9.1 mg/dL (8.5-10.5); Carbon Dioxide 19 mmol/L (22-29); Chloride 98 mmol/L (98-107); Globulin 3.1 g/dL (1.3-4.6); Glucose 117 mg/dL (65-115); Lipase 77 U/L (13-60); Osmolality Calculated 282 mOsm/kg (285-295); Potassium 3.6 mmol/L (3.5-5.1); Sodium 135 mmol/L (136-145); Total Bilirubin 0.3 mg/dL (0.15-1.2); Total Protein 7.6 g/dL (6.6-8.7)
[2022-02-15 13:26] LABS: Troponin(5th) Baseline 17 ng/L (0-10)
[2022-02-15] MEDS: dilTIAZem 5 mg/mL SDV 5 mL 10 MG IVP (14:00)
--- NOTE | 2022-02-15 14:00 | P.HP_ITS ---
Providers/Chief Complaint Primary Care Provider: Sam Manriquez MD Chief Complaint: GENERAL WEAKNESS; N/V/D History of Present Illness Alyson Loaiza is a 76 year old female with past medical history of atrial fibrillation on Eliquis for anticoagulation, hypertension, post pacemaker implantation for symptomatic bradycardia in 2019 presented the ER because of ongoing diarrhea and vomiting for last 4 days which made her feel dehydrated. Today she was feeling weak so she called EMS. On arrival of the EMS they found her in A. fib with RVR so she was brought to the ER. In the ER she received 2 doses of Cardizem IV and oral 60 mg Cardizem along with 500 cc of fluid bolus. On examination patient's heart rate is running between 80-90 at rest going up to 110 on minimal ambulation, saturating well on room air. Review of Systems General: Reports: 10 or more systems reviewed and unremarkable except in HPI and below Const: Denies: fever(s), chills, body aches, change in appetite, change in weight, malaise, night sweats, diaphoresis, change in sleep pattern, daytime sleepiness or snoring Eyes: Denies: change in vision, blurry vision, photophobia, eye discomfort or eye discharge ENMT: Denies: throat pain, enlarged tonsils, hoarseness, mouth pain, oral s ores, dry mouth, tinnitus, nasal congestion or post nasal drip Card: Denies: chest pain, palpitations, irregular heart rhythm, edema, swelling of feet/ankles, lightheadedness, syncope, pre-syncope, dyspnea on exertion, orthopnea, leg pain with exertion or acrocyanosis Resp: Denies: dyspnea, productive cough, non-productive cough, wheezing, stridor, pain on inspiration, change in phlegm color, hemoptysis or chest congestion GI: Denies: abdominal pain, nausea, vomiting, hematemesis, coffee ground emesis, dysphagia, heartburn, diarrhea, constipation, bloating, GI cramping, change in bowel habits, pain on defecation, hematochezia or melena : Denies: flank pain, dysuria, urinary frequency, urinary urgency, urinary hesitancy, nocturia or hematuria Musc: Denies: neck pain, back pain, extremity pain, joint pain, joint swelling, joint redness, joint stiffness or limited range of motion Neuro: Denies: headache(s), numbness in extremities, weakness in extremities, sensory changes, lack of coordination, difficulty walking, frequent falls, dizziness, vertigo, confusion, Slurred speech present, difficulty communicating thoughts or seizure-like activity Psych: Denies: anxiety, depression, mood swings, panic attacks, hopelessness or irritability Endo: Denies: polyuria, polydipsia, tired all the time, cold intolerance, excessive sweating, flushing or heat intolerance Rajinder/Lymph: Denies: easy bruising or easy bleeding All/Imm: Denies: tongue swelling, facial swelling or acute wheezing Medications/Allergies Home Medications Medication Instructions Recorded Confirmed Last Taken Type cetirizine 10 mg tablet (Zyrtec) 10 mg PO DAILY PRN Allergy Symptoms 03/20/20 02/15/22 Unknown History levetiracetam 500 mg tablet 500 mg PO BID 03/20/20 02/15/22 02/14/22 History (Keppra) melatonin 3 mg capsule 3 mg PO BEDTIME 03/20/20 02/15/22 02/14/22 History sertraline 50 mg tablet (Zoloft) 50 mg PO DAILY 03/20/20 02/15/22 02/14/22 History levothyroxine 75 mcg tablet 75 mcg PO DAILY 01/27/21 02/15/22 02/14/22 History pantoprazole 40 mg tablet,delayed 40 mg PO DAILY #90 tabs 07/15/21 02/15/22 02/14/22 Rx release metoprolol tartrate 25 mg tablet 12.5 mg PO BID #90 tabs 07/22/21 02/15/22 02/14/22 Rx apixaban 5 mg tablet (Eliquis) 5 mg PO BID #180 tabs 10/22/21 02/15/22 02/14/22 Rx atorvastatin 80 mg tablet 80 mg PO DAILY #90 tabs 10/23/21 02/15/22 02/14/22 Rx losartan 100 mg tablet 100 mg PO DAILY #90 tabs 02/02/22 02/15/22 02/14/22 Rx albuterol sulfate 90 mcg/actuation 2 puff inhalation Q6H PRN 02/05/22 02/15/22 Unknown Rx aerosol inhaler (Ventolin HFA) shortness of breath or wheezing #8.5 grams fluticasone propionate 50 2 spray intranasal DAILY PRN 02/05/22 02/15/22 Unknown Rx mcg/actuation nasal allergy symptoms #16 grams spray,suspension (Allergy Relief (fluticasone)) phenylephrine HCl 10 mg tablet 10 mg PO Q6H PRN nasal congestion 02/05/22 02/15/22 Unknown Rx (Nasal Decongestant #12 tabs (phenylephrine)) Allergies Allergy/AdvReac Type Severity Reaction Status Date / Time No Known Allergies Allergy Verified 02/05/22 10:13 PFSH Acute PFSH: Medical History (Updated 02/15/22 @ 16:08 by Catrachito Krishnamurthy MD) Atrial fibrillation Dyslipidemia Hx of cardiac pacemaker Hypothyroidism Ischemic stroke Recurrent UTI Supraventricular tachycardia Tachyarrhythmia Urinary incontinence Uterovaginal prolapse Surgical History History of cardiac cath History of vaginal hysterectomy Hx of cholecystectomy Hx of tubal ligation Family History Father CAD (coronary artery disease) Mother Cancer MALIGNANT NEOPLASM OF LIVER, PRIMARY Hypertension Social History Smoking and tobacco status: never smoked Alcohol intake: never Marital status: / Current occupational status: retired Vitals/I&O/Wt Last Vital Signs Temp 98.8 F 02/15/22 12:12 Pulse 134 H 02/15/22 12:12 Resp 16 02/15/22 12:12 BP 92/73 02/15/22 12:12 Pulse Ox 94 02/15/22 12:12 O2 Del Method 02/15/22 12:12 Weight last 48 hrs Weight 58.06 kg Physical Exam Narrative: EXAM NARRATIVE: General: No acute distress, AO x3, dehydrated HEENT: PERRLA, pupils bilaterally equal and reactive Chest: Bilateral normal vesicular breath sounds, good equal air entry bilaterally CVS: S1-S2 irregularly irregular, no murmurs, no tachycardia, no gallops, no rubs Abdomen: Soft, nontender, no organomegaly, bowel sounds present, morbidly obese Neuro: No focal deficits, no facial deformity, AO x3, power 5/5 in all limbs Data : 02/15/22 12:39 02/15/22 12:39 A&P Assessment and plan (1) Atrial fibrillation with RVR: Takes metoprolol 12.5 mg twice daily. Most likely in RVR because of dehydration. For now increase metoprolol to 25 mg twice daily. Add Cardizem 30 mg 4 times daily. If heart rate remains more than 100 after giving fluid bolus we will start on Cardizem drip. Monitor blood pressures. Continue with Eliquis for anticoagulation. Check TSH (2) Generalized weakness: (3) Diarrhea: Stool studies. IV fluids with normal saline at 75 cc/h. (4) Hx of cardiac pacemaker: (5) Ischemic stroke: (6) Hypertension: Goal blood pressure less than 140/90 mmHg with mean over 65. Take losartan 100 mg daily, metoprolol 12.5 mg twice daily at home. Hold off on losartan for now given borderline normal blood pressures Plan Other chronic medications. Full code. Cardiac diet. Protonix OPD prophylaxis Eliquis suffice for DVT prophylaxis Attestations Medical Necessity Statement*: Admission for more than 2 midnights for management of atrial fibrillation with rapid ventricular response requiring IV drip, diarrhea, dehydration Time Spent in Patient Care: Greater than 35 minutes Coding Level of Care Code Acute Russian Language Professor for [facility] Fwd Diagnoses Atrial fibrillation with RVR I48.91 Generalized weakness R53.1 Diarrhea R19.7 Hx of cardiac pacemaker Z95.0 Ischemic stroke I63.9 Hypertension I10
--- NOTE | 2022-02-15 14:21 | ECG_ITS ---
[facility] Test Date: 2022-02-15 Pat Name: Alyson Loaiza Department: Room: Gender: Female Critical Care Cns: : 1945 Requested By: Deisy Michel Order Number: [id number] Foster MD: Dash Beltran M.D. Measurements Intervals [place] Rate: 119 P: IL: QRS: -13 QRSD: 111 T: 11 QT: 324 QTc: 457 Interpretive Statements ATRIAL FIBRILLATION WITH RAPID VENTRICULAR RESPONSE MODERATE INTRAVENTRICULAR CONDUCTION DELAY [110+ ms QRS DURATION] MINIMAL ST DEPRESSION [0.025+ mV ST DEPRESSION] ABNORMAL RHYTHM ECG Compared to ECG 02/15/2022 12:23:42 Intraventricular conduction delay now present ST (T wave) deviation still present Electronically Signed On 02-16-2022 21:29:07 CDT by Dash Beltran M.D. [id number]
[2022-02-15 15:22] LABS: Troponin 5 2HR 28.69 ng/L (0-10)
[2022-02-15 15:23] LABS: Troponin 5 2HR Delta 11.69 ABS# (0-10)
--- NOTE | 2022-02-15 15:23 | USCV_ITS ---
Alyson Loaiza Age: 76 Gender: F : 1945 Exam Date: 02/15/2022 15:38 Ordering Phys: Catrachito Krishnamurthy MD Technologist: Melida Layton Exam Location: [facility] [place] Indication: Afib BP: 117 / 62 HR: 80 Rhythm: Atrial fibrillation Technical Quality: Adequate MEASUREMENTS (Male / Female) Normal Values 2D ECHO LV Diastolic Diameter PLAX 2.7 cm 4.2 - 5.9 / 3.9 - 5.3 cm LV Systolic Diameter PLAX 2.5 cm LV Chamber Size 2.6 cm IVS Diastolic Thickness 1.2 cm 0.6 - 1.0 / 0.6 - 0.9 cm IVS Systolic Thickness 1.6 cm LVPW Diastolic Thickness 0.9 cm 0.6 - 1.0 / 0.6 - 0.9 cm LVPW Systolic Thickness 1.4 cm RV Chamber Size 2.6 cm LVOT Diameter 2.1 cm LV Ejection Fraction 2D Teich 8.4 % LV Ejection Fraction MOD 2C 67.2 % LV Ejection Fraction 2C AL 68.6 % LA Diameter 2.6 cm LA Width 2.3 cm LA Height 3.2 cm RA Width 3.0 cm RA Height 3.2 cm Aorta at Sinotubular Diameter 2.8 cm IVC Diameter 2.1 cm M-MODE Aortic Annulus Diameter 2.9 cm LA Ao Ratio MM 1.0 MV E Point Septal Separation 0.3 cm DOPPLER AV Peak Velocity 119.0 cm/s LVOT Peak Velocity 125.0 cm/s AV Area Cont Eq vti 3.4 cm squared AV Area Cont Eq pk 3.6 cm squared MV Area PHT 3.5 cm squared MV E' Velocity 64.0 cm/s Mitral E to MV E' Ratio 8.1 Mitral E to LV E' Lateral Ratio 7.5 Mitral E to LV E' Septal Ratio 8.8 TR Peak Velocity 235.2 cm/s TR Peak Gradient 22.1 mmHg TR Mean Velocity 150.9 cm/s TR Mean Gradient 11.1 mmHg TR Velocity Time Integral 48.4 cm TV Peak E Velocity 98.0 cm/s Right Atrial Pressure 3.0 mmHg Pulmonary Artery Systolic Pressu 25.1 mmHg RV Acceleration Time 0.2 s RV Ejection Time 0.3 s RV AcT/ET 0.5 FINDINGS Left Ventricle Normal left ventricular size and systolic function, EF 74 %. No regional wall motion abnormalities. Right Ventricle Pacemaker wire in the right to undergo Right Atrium Pacemaker wire in the right atrium Left Atrium Mildly increased left atrial size. Mitral Valve Moderate mitral annular calcification. Aortic Valve Mild aortic valve regurgitation. Thickened aortic valve. Tricuspid Valve [id number] tricuspid valve regurgitation. Estimated pulmonary artery peak systolic pressure was 25 mmHg, Pulmonic Valve Structurally normal pulmonic valve without significant stenosis. There is no pulmonic regurgitation. Pericardium Normal pericardium without effusion. Aorta Normal aortic annulus size. IVC Normal inferior vena cava. CONCLUSIONS Normal left ventricular size and systolic function, EF 74 %. No regional wall motion abnormalities. Mildly increased left atrial size. Moderate mitral annular calcification. [id number] tricuspid valve regurgitation. Estimated pulmonary artery peak systolic pressure was 25 mmHg,. No similar previous studies are available for comparison Dr Dash Beltran MD FACC (Electronically Signed) Final Date: 15 February 2022 17:58 S
[2022-02-15] MEDS: sodium chloride 0.9% 500 ML 999 ML IV (16:14)
[2022-02-15 16:17] LABS: Glucose Urine UA Norm (Normal); Ketones Urine 1+ (Negative); Urine Appearance SL Hazy (CLEAR); Urine Color Yellow (Yellow); pH Urine 5 (5-7)
[2022-02-15 16:18] LABS: Add Urine Microscopic? YES; Bilirubin Urine Neg (Negative); Blood Urine 2+ (Negative); Leukocyte Esterase Urine 2+ (Negative); Nitrate Urine Negative (Negative); Protein Urine Trace (Negative); Urobilinogen Urine Norm (Negative)
[2022-02-15 16:19] LABS: Add Urine Culture? Yes; Bacteria Urine 1+ /hpf; RBC Urine 0-4 /hpf (0-2); WBC Urine 80-100 /hpf (0-5)
[2022-02-15 16:25] LABS: Thyroid Stimulating Hormone 0.96 uIU/mL (0.27-4.20)
[2022-02-15 16:35] LABS: Iron 77 ug/dL (37-145); Percent Saturation 34.6 % (20-50); Total Iron Binding Capacity 222 mcg/dl; Unsaturated Iron Binding 145 ug/dL (112-347); Vitamin B12 232 pg/mL (232-1245)
[2022-02-15] MEDS: dilTIAZem 30 mg Tablet PO ×2 (16:59→21:19)
[2022-02-15] MEDS: levETIRAcetam 500 mg Tablet PO (17:26)
[2022-02-15] MEDS: apixaban 5 mg Tablet PO (17:26)
[2022-02-15] MEDS: metoprolol tartrate 25 mg Tablet PO (17:26)
[2022-02-15] MEDS: sodium chloride 0.9% 1,000 ML 75 ML IV (17:27)
[2022-02-16] VITALS: BP 107/47; PULSE 60; RESP 18; TEMP 36.8; O2SAT 99
[2022-02-16 03:37] LABS: Basophils % 0.5 %; Eosinophils % 0.2 %; Hematocrit 41.7 % (37.0-47.0); Hemoglobin 13.4 g/dL (11.5-15.3); Lymphocytes # 2.6 10^3/uL (0.8-4.8); Lymphocytes % 63.1 %; Mean Corpuscular HGB Conc 32.1 g/dL (30.0-36.0); Mean Corpuscular Hemoglobin 31.2 pg (28.0-34.0); Mean Corpuscular Volume 97.2 fl (81-99); Mean Platelet Volume 10.8 fL (7.4-10.4); Monocytes # 0.4 10^3/uL (0.2-0.9); Monocytes % 8.8 %; Neutrophils # 1.11 10^3/uL (1.8-7.7); Neutrophils % 27.2 %; Nucleated Red Blood Cells % 0 %; Platelet Count 145 10^3/cmm (130-400); Red Blood Count 4.29 10^6/uL (4.1-5.3); Red Cell Distribution Width 13.3 % (12.1-15.1); White Blood Count 4.1 10^3/uL (4.0-10.0)
[2022-02-16 03:52] VITALS: BP 121/52; PULSE 68; RESP 15; TEMP 36.5; O2SAT 93
[2022-02-16 03:55] LABS: Alanine Aminotransferase 16 U/L (0-33); Albumin Level 3.6 g/dL (3.5-5.2); Alkaline Phosphatase 95 U/L (35-105); Anion Gap 13.6 (5-19); Aspartate Amino Transferase 28 U/L (0-32); Blood Urea Nitrogen 13 mg/dL (8-23); Calcium 8.5 mg/dL (8.5-10.5); Carbon Dioxide 22 mmol/L (22-29); Chloride 106 mmol/L (98-107); Chol HDL Ratio 4.67 mg/dL (0.0-4.40); Cholesterol 98 mg/dL (0-200); Creatinine Clr Calc Pharmacy 51.6271; Globulin 2.6 g/dL (1.3-4.6); Glucose 89 mg/dL (65-115); HDL Cholesterol 21 mg/dL (60-100); LDL Cholesterol Calculated 45 mg/dL (50-129); Magnesium 1.9 mg/dL (1.7-2.3); Osmolality Calculated 286 mOsm/kg (285-295); Phosphorus 2.6 mg/dL (2.5-4.5); Potassium 3.6 mmol/L (3.5-5.1); Sodium 138 mmol/L (136-145); Total Bilirubin 0.3 mg/dL (0.15-1.2); Total Protein 6.2 g/dL (6.6-8.7); Triglycerides 161 mg/dL (0-150); VLDL Cholestrol Calculation 32 mg/dL (0-30)
[2022-02-16 04:19] LABS: Estmated Average Glucose 128; Hemoglobin A1C 6.1 % (4.0-6.0)
[2022-02-16 04:22] LABS: Folate Level 7.3 ng/mL (4.8-37.3)
[2022-02-16 05:41] VITALS: PULSE 69
[2022-02-16 07:24] VITALS: BP 131/58; PULSE 69; RESP 20; TEMP 36.6; O2SAT 95
[2022-02-16 08:00] VITALS: PULSE 75; RESP 16; O2SAT 94
[2022-02-16] MEDS: dilTIAZem 30 mg Tablet PO (08:34)
[2022-02-16] MEDS: levETIRAcetam 500 mg Tablet PO (08:34)
[2022-02-16] MEDS: sertraline 50 mg Tablet PO (08:34)
[2022-02-16] MEDS: pantoprazole DR 40 mg Tablet PO (08:35)
[2022-02-16] MEDS: levothyroxine 75 mcg Tablet PO (08:35)
[2022-02-16] MEDS: atorvastatin 40 mg Tablet 80 MG PO (08:35)
[2022-02-16] MEDS: apixaban 5 mg Tablet PO (08:35)
[2022-02-16] MEDS: metoprolol tartrate 25 mg Tablet PO (08:35)
[2022-02-16 11:19] VITALS: BP 118/55; PULSE 66; RESP 18; TEMP 36.6; O2SAT 95
--- NOTE | 2022-02-16 13:26 | P.DS_ITS ---
Discharge Providers Date of Admission: 02/15/22 15:24 Date of Discharge: February 16, 2022 Attending Provider at Admission: Catrachito Krishnamurthy MD Attending Provider at Discharge: Amauri Hu Primary Care Provider: Sam Manriquez MD Diagnoses at Discharge Discharge Diagnosis (1) Atrial fibrillation with RVR: Status: Acute (2) Generalized weakness: Status: Acute (3) Diarrhea: Status: Acute (4) Hx of cardiac pacemaker: Status: Acute (5) Ischemic stroke: Status: Acute (6) Hypertension: Status: Acute Reason for Visit Reason for Visit: GENERAL WEAKNESS; N/V/D Hospital Course Hospital Course Pleasant 76-year-old lady was admitted for assessment of management of presenting with atrial fibrillation with RVR, with ongoing diarrhea, also vomiting the last 4 days, dehydration, received IV hydration, so far without recurrence of vomiting, has been having chronic diarrhea over the past 2 years. Atrial fibrillation with RVR on presentation heart rates up as high as 140 bpm, was continued on metoprolol but dose was increased to 25 mg twice daily, and was started on Cardizem 30 mg every 6 hours. Heart rates improved remarkably quickly, and have remained controlled. She has remained chest pain-free. She did have positive delta troponin with mild up to moderate elevation of high-sensitivity troponins. Discussed with her and her family. She denies known prior history of coronary disease, never had a evaluation either. Echocardiogram returned with normal ejection fraction, without RWMA as well. As troponin ovation suspected or other secondary to demand ischemia with atrial fibrillation with RVR, however, with coronary dise ase risk factors, lack of prior evaluation she is also referred for additional assessment by stress testing, please follow-up. She has had no recurrence of vomiting, tolerating regular diet. Due to persistent diarrhea stool studies were sent, C. difficile was negative, stool cultures, ova and parasites are pending. Lactoferrin positive. She has no abdominal pain. Remains afebrile without leukocytosis. Please follow-up final stool studies. Given chronic diarrhea she reports over the last 2 years or so, she is asked for now to trial discontinuing lactulose. Several of her medications could also contribute, including sertraline with diarrhea a possible adverse effect (13- 24%), atorvastatin (14%), less commonly pantoprazole, metoprolol. Decreased her sertraline dose for now to 25 mg, consider further tapering off and in case responding well switching over to a different medication. With chronic diarrhea consider further work-up, referral to GI. Urinalysis suspicious for urinary tract infection, given a short course of ciprofloxacin, urine culture pending. Physical Exam Narrative: Surrounded by family. Const: COMMON NORMALS: patient oriented x3 and alert GENERAL APPEARANCE: cooperative ORIENTATION/CONSCIOUSNESS: Yes awake HENMT: COMMON NORMALS: oropharynx normal Neck/C-Spine: COMMON NORMALS: no JVD Chest: OTHER: PPM L chest Resp: COMMON NORMALS: normal respiratory effort and clear to auscultation bilaterally AUSCULTATION: clear to auscultation bilaterally Cardio: COMMON NORMALS: no JVD, regular rhythm, S1 normal heart sound present, S2 normal heart sound present and No murmurs present (Cardio) RHYTHM: regular rhythm HEART SOUNDS: S1 normal heart sound present and S2 normal heart sound present GI: COMMON NORMALS: Normal to inspection, nondistended, normoactive bowel sounds present, Soft to palpation and non-tender PALPATION: Yes Soft to palpation Extremity: COMMON NORMALS: no joint enlargement and no pedal edema Neuro: COMMON NORMALS: patient oriented x3 and moves all extremities SENSORIUM/ORIENTATION: Yes alert Skin: COMMON NORMALS: no rashes or lesions noted GENERAL SKIN EXAM: no rashes or lesions noted Discharge Data Studies Completed and Pending Completed Studies During Hospitalization Category Date Time Status XR chest 1V portable [id number] Stat Exams 02/15/22 12:21 Completed CV. echo complete* [id number] Routine Ultrasound 02/15/22 15:23 Completed Pending at discharge Category Date Time Status Clostridioides Difficile PCR Routine Lab 02/15/22 20:05 Results Enteric Bacterial Panel by PCR Routine Lab 02/15/22 20:05 Results Enteric Parasite Panel by PCR Routine Lab 02/15/22 20:05 Results Immunochemical Fecal OCB Routine Lab 02/15/22 20:05 Results Lactoferrin Routine Lab 02/15/22 20:05 Results Urine Culture Stat Lab 02/15/22 15:30 Results Radiology Impressions Chest X-Ray 02/15/22 12:21 IMPRESSION: 1. No acute findings. 2. Cardiac device left anterior chest Laboratory Results WBC 4.1 10^3/uL (4.0-10.0) 02/16/22 03:25 RBC 4.29 10^6/uL (4.1-5.3) 02/16/22 03:25 Hgb 13.4 g/dL (11.5-15.3) 02/16/22 03:25 Hct 41.7 % (37.0-47.0) 02/16/22 03:25 MCV 97.2 fl (81-99) 02/16/22 03:25 MCH 31.2 pg (28.0-34.0) 02/16/22 03:25 MCHC 32.1 g/dL (30.0-36.0) 02/16/22 03:25 RDW 13.3 % (12.1-15.1) 02/16/22 03:25 Plt Count 145 10^3/cmm (130-400) 02/16/22 03:25 MPV 10.8 fL (7.4-10.4) H 02/16/22 03:25 Neut % (Auto) 27.2 % 02/16/22 03:25 Lymph % (Auto) 63.1 % 02/16/22 03:25 [place] % (Auto) 8.8 % 02/16/22 03:25 Eos % (Auto) 0.2 % 02/16/22 03:25 Baso % (Auto) 0.5 % 02/16/22 03:25 Neut # (Auto) 1.11 10^3/uL (1.8-7.7) L 02/16/22 03:25 Lymph # (Auto) 2.6 10^3/uL (0.8-4.8) 02/16/22 03:25 [place] # (Auto) 0.4 10^3/uL (0.2-0.9) 02/16/22 03:25 Eos # (Auto) 0.0 10^3/uL (0.0-0.8) 02/16/22 03:25 Baso # (Auto) 0.0 10^3/uL (0.0-0.1) 02/16/22 03:25 Nucleated RBC % (auto) 0 % 02/16/22 03:25 Nucleated RBCs # 0.0 /100WBC 02/16/22 03:25 Sodium 138 mmol/L (136-145) 02/16/22 03:25 Potassium 3.6 mmol/L (3.5-5.1) 02/16/22 03:25 Chloride 106 mmol/L (98-107) 02/16/22 03:25 Carbon Dioxide 22 mmol/L (22-29) 02/16/22 03:25 Anion Gap 13.6 (5-19) 02/16/22 03:25 BUN 13 mg/dL (8-23) 02/16/22 03:25 Creatinine 0.8 mg/dL (0.5-0.9) 02/16/22 03:25 GFR Calculation Not Reportable 02/16/22 03:25 Glucose 89 mg/dL (65-115) 02/16/22 03:25 Estimat Average Glucose 128 02/16/22 03:25 Hemoglobin A1c 6.1 % (4.0-6.0) H 02/16/22 03:25 Calculated Osmolality 286 mOsm/kg (285-295) 02/16/22 03:25 Calcium 8.5 mg/dL (8.5-10.5) 02/16/22 03:25 Phosphorus 2.6 mg/dL (2.5-4.5) 02/16/22 03:25 Magnesium 1.9 mg/dL (1.7-2.3) 02/16/22 03:25 Iron 77 ug/dL (37-145) 02/15/22 12:39 TIBC 222 mcg/dl 02/15/22 12:39 % Saturation 34.6 % (20-50) 02/15/22 12:39 Unsat Iron Binding 145 ug/dL (112-347) 02/15/22 12:39 Total Bilirubin 0.3 mg/dL (0.15-1.2) 02/16/22 03:25 AST 28 U/L (0-32) 02/16/22 03:25 ALT 16 U/L (0-33) 02/16/22 03:25 Alkaline Phosphatase 95 U/L (35-105) 02/16/22 03:25 Troponin T Baseline 17 ng/L (0-10) H 02/15/22 12:39 Troponin T 120 Minute 28.69 ng/L (0-10) H 02/15/22 14:42 Delta Troponin T 11.69 ABS# (0-10) H* 02/15/22 14:42 Troponin T Hi Sens 6Hr 54.70 ng/L (0-10) H 02/15/22 19:34 Troponin T Hi Sens 6Hr Delta 37.70 ng/L (0-12) H* 02/15/22 19:34 Total Protein 6.2 g/dL (6.6-8.7) L 02/16/22 03:25 Albumin 3.6 g/dL (3.5-5.2) 02/16/22 03:25 Globulin 2.6 g/dL (1.3-4.6) 02/16/22 03:25 Triglycerides 161 mg/dL (0-150) H 02/16/22 03:25 Cholesterol 98 mg/dL (0-200) 02/16/22 03:25 LDL Cholesterol, Calc 45 mg/dL (50-129) L 02/16/22 03:25 Total VLDL Cholesterol 32 mg/dL (0-30) H 02/16/22 03:25 HDL Cholesterol 21 mg/dL (60-100) L 02/16/22 03:25 Cholesterol/HDL Ratio 4.67 mg/dL (0.0-4.40) H 02/16/22 03:25 Lipase 77 U/L (13-60) H 02/15/22 12:39 Vitamin B12 232 pg/mL (232-1245) 02/15/22 12:39 Folate 7.3 ng/mL (4.8-37.3) 02/15/22 03:25 TSH 0.96 uIU/mL (0.27-4.20) 02/15/22 12:39 Urine Color Yellow (Yellow) 02/15/22 15:30 Urine Appearance Sl hazy (CLEAR) A 02/15/22 15:30 Urine pH 5 (5-7) 02/15/22 15:30 Ur Specific [place] 1.020 (1.005-1.030) 02/15/22 15:30 Urine Protein Trace (Negative) 02/15/22 15:30 Urine Glucose (UA) Norm (Normal) 02/15/22 15:30 Urine Ketones 1+ (Negative) H 02/15/22 15:30 Urine Blood 2+ (Negative) H 02/15/22 15:30 Urine Nitrate Negative (Negative) 02/15/22 15:30 Urine Bilirubin Neg (Negative) 02/15/22 15:30 Urine Urobilinogen Norm mg/dL (Negative) 02/15/22 15:30 Ur Leukocyte Esterase 2+ (Negative) H 02/15/22 15:30 Urine RBC 0-4 /hpf (0-2) H 02/15/22 15:30 Urine WBC 80-100 /hpf (0-5) H 02/15/22 15:30 Ur Squamous Epith Cells 5-10 /hpf (0-5) H 02/15/22 15:30 Amorphous Sediment Not Reportable 02/15/22 15:30 Urine Bacteria 1+ /hpf (NONE) H 02/15/22 15:30 Vitals Last Vital Signs Temp 97.9 F 02/16/22 11:19 Pulse 66 02/16/22 11:19 Resp 18 02/16/22 11:19 BP 118/55 02/16/22 11:19 Pulse Ox 95 02/16/22 11:19 O2 Del Method 02/16/22 11:19 O2 Flow Rate 95 02/15/22 16:00 Discharge Plan Discharge Patient Disposition: Home Condition: Stable Prescriptions: New diltiazem HCl 120 mg capsule,extended release 12 hr 120 mg PO BID Qty: 180 0RF Cipro 500 mg tablet 500 mg PO BID Qty: 10 0RF aspirin [Aspirin Childrens] 81 mg tablet,chewable 81 mg PO DAILY Qty: 14 0RF Continued levothyroxine 75 mcg tablet 75 mcg PO DAILY melatonin 3 mg capsule 3 mg PO BEDTIME cetirizine [Zyrtec] 10 mg tablet 10 mg PO DAILY PRN (Reason: Allergy Symptoms) levetiracetam [Keppra] 500 mg tablet 500 mg PO BID fluticasone propionate [Allergy Relief (fluticasone)] 50 mcg/actuation spray,suspension 2 spray intranasal DAILY PRN (Reason: allergy symptoms) Qty: 16 0RF Rx Instructions: administer into each nostril albuterol sulfate [Ventolin HFA] 90 mcg/actuation HFA aerosol inhaler 2 puff inhalation Q6H PRN (Reason: shortness of breath or wheezing) Qty: 8.5 0RF phenylephrine HCl [Nasal Decongestant (PE)] 10 mg tablet 10 mg PO Q6H PRN (Reason: nasal congestion) Qty: 12 0RF pantoprazole 40 mg tablet,delayed release (DR/EC) 40 mg PO DAILY Qty: 90 3RF Eliquis 5 mg tablet 5 mg PO BID Qty: 180 3RF atorvastatin 80 mg tablet 80 mg PO DAILY Qty: 90 3RF losartan 100 mg tablet 100 mg PO DAILY Qty: 90 3RF Changed Zoloft 50 mg tablet 25 mg PO DAILY Qty: 1 0RF metoprolol tartrate 25 mg tablet 25 mg PO BID Qty: 90 3RF Discharge Orders: Discharge Order (Routine); Ordered 02/16/22 Ordered By: Amauri Hu Other Ambulatory Orders: Sestamibi Stress Test Request (Routine) Timeframe: 1 Week Facility: [facility] - Location: Cardiac Diagnostic Laboratory Ordered By: Amauri Hu Referrals: Heavenly Mata FNP [Nurse Practitioner] - 1 week (After stress test) Sam Manriquez MD [Primary Care Provider] - 4-7 days Patient Instructions: Ciprofloxacin (By mouth), Diltiazem (By mouth), A-fib (Atrial Fibrillation) (GEN), Chronic Diarrhea (GEN), Fall Prevention (GEN), Urinary Tract Infection in Older Adults (GEN) Activity Restrictions/Additional Instructions: Please avoid lactose for the next 2 weeks to assess if chronic diarrhea may be secondary to lactose intolerance. Please note that sertraline can cause diarrhea (13-24%), your sertraline dose for now is decreased to 25 mg, please discuss with your primary doctor consideration of further tapering off gradually, consideration of switching to a different medication to see if may alleviate diarrhea. Please otherwise note atorvastatin may cause diarrhea (14%), consider changing to a different cholesterol medication with your primary doctor. Less commonly pantoprazole (4%), metoprolol (2%) can cause diarrhea. Due to suspected urinary tract infection you are given a brief course of antibiotic with ciprofloxacin, please follow-up with urine culture results which will be available in several days with your primary doctor at next appointment. Discussed with your primary doctor referral to gastroenterology specialist for follow-up of chronic diarrhea. Please note that stool culture, ova and parasite panels are pending results. Please follow-up with stress test, discuss results with your primary care doctor and electronics engineering professor. Discharge Attestations Time Spent in Discharge Care*: greater than 30 min Status at Discharge: Cognitive status at discharge: cognitively intact , Behavioral status at discharge: cooperative , Quality Metrics Clinical Quality Measures [ No reported AMI, CVA or VTE this stay] Coding Level of Care Code Acute Chg FW DC note Diagnoses Atrial fibrillation with RVR I48.91 Generalized weakness R53.1 Diarrhea R19.7 Hx of cardiac pacemaker Z95.0 Ischemic stroke I63.9 Hypertension I10
--- NOTE | 2022-02-16 13:46 | PC.CHAP ---
Pastoral Care Encounter/Spiritual Assessment Type of Contact [] Declined assistant professor of mathematics visit [] Patient/Family/Request visit [] Outpatient visit [] Follow-up visit [] Physician referral [] Code/Alert [x] Routine visit [] Staff referral [] Actively dying [] Patient sleeping [] Family support [] [] Out of room [] Palliative care [] [] Receiving care in room [] Pre-surgical visit [] Trauma [] Long length of stay [] ICU visit [] Other: Relational/Emotional Strength [x] Patient feels connected with others/family/visitors/staff [] Distress [] Loneliness/isolation [] Abandonment Spirituality of Patient [x] Person of [place] [] Attends Hoahaoism of their [place] [x] Believes in Prayer [] Reads Bible or Holiness materials [] There are Spiritual issues to be addressed Pack Train Driver Interventions [x] Prayer [] Active listening [] Non-anxious presence [] Spiritual/emotional support [] Crisis/trauma care [] Spiritual counseling [] Bereavement support [] Provided bereavement packet [] Provided Bible/devotional materials [] Provided toy/stuffed animal, coloring book to patient or family member [] Provided Communion [] Anointing/[place] [] Salvation [x] Completed spiritual assessment [] Other: Impact on Illness or Injury [] Angry [] Fearful [] Anxious [] Often cries [] Exhaustion [] Unable to work [] Unable to attend baptist [] Unable to walk/stand [] Unable to read [] Unable to drive [] Unable to eat/drink [] Unable to sleep [] Unable to be with family [] Patient intubated [] Other: Summary Time spent with patient 10 min
--- NOTE | 2022-02-16 14:57 | PC.NURSE ---
Discharge Note Patient discharged to home via private vehicle accompanied by dgtr and son in law. Discharge instructions reviewed with patient and/or eligibility services representative. Mobile pharmacy medications and/or prescriptions provided. Belongings/home medications returned. Discuss to to pt and family regarding outpt stress test. to call the centralized scheduling if have not heard from them. discuss to pt regarding new meds dosing, timing and possible side effects. clarified to doctor Fritz via voalte phone regarding her diltiazem s/e and he instructed pt to not take it if her BP is below 100-110/50, to take baby aspirin for the time being until she is done w/stress test and review it w/her pcp and spare parts clerk. pt and family verbalizes understanding.
== END 2022-02-16 14:54 | disposition home or self-care (01) | DRG 310 ==
LOC: ER 15:32 → MEDSURG 16:35
PROVIDERS: Admitting Provider Student in an Organized Health Care Education/Training Program; Emergency Provider Emergency Medicine; PCP Family Medicine; Visit Provider Internal Medicine
DX: I48.91 Unspecified atrial fibrillation (principal); Z79.01 Long term (current) use of anticoagulants; I10 Essential (primary) hypertension; Z95.0 Presence of cardiac pacemaker; E86.0 Dehydration; E78.5 Hyperlipidemia, unspecified; E03.9 Hypothyroidism, unspecified; Z86.73 Personal history of transient ischemic attack (TIA), and cerebral infarction without residual deficits; Z87.440 Personal history of urinary (tract) infections; K52.9 Noninfective gastroenteritis and colitis, unspecified
CPT/HCPCS: 36415; 71045; 80053; 80061; 81001; 82274; 82607; 82746; 83036; 83540; 83550; 83630; 83690; 83735; 84100; 84443; 84484; 85025; 87086; 87493; 87506; 93005; 93306; 94664; 96361; 96374; 96375; 99285; J3490; J7030; J7040

== ENCOUNTER → 2022-03-31 14:56 | Outpatient (BNVA) | payer MEDICARE, OTHER, SELFPAY | PROVIDERS: PCP Family Medicine; Visit Provider Internal Medicine | DX: I48.91 Unspecified atrial fibrillation (principal); I10 Essential (primary) hypertension; Z95.0 Presence of cardiac pacemaker; I25.2 Old myocardial infarction | CPT/HCPCS: 99213 ==

== ENCOUNTER 2022-07-04 20:06 | Emergency (ER) | payer MEDICARE, OTHER, SELFPAY ==
[2022-07-04 21:01] VITALS: BP 160/68; PULSE 74; RESP 20; TEMP 36.7; O2SAT 93; BMI 22.4
[2022-07-04 22:57] LABS: Add Urine Microscopic? YES; Bilirubin Urine Neg (Negative); Blood Urine 3+ (Negative); Glucose Urine UA Norm (Normal); Ketones Urine Negative (Negative); Leukocyte Esterase Urine 2+ (Negative); Nitrate Urine Negative (Negative); Protein Urine 1+ (Negative); Specific Gravity, Urine 1.005 (1.005-1.030); Urine Appearance SL Hazy (CLEAR); Urine Color Orange (Yellow); Urobilinogen Urine Neg (Negative); pH Urine 7 (5-7)
[2022-07-04 23:03] LABS: Bacteria Urine 1+ /hpf; Mucus Urine TRACE /hpf; RBC Urine >100 /hpf (0-2); Renal Epithelial Cells Urine 0 /hpf; Squamous Epithelial Cell Urine 0-4 /hpf (0-5); WBC Urine 80-100 /hpf (0-5)
[2022-07-04 23:04] LABS: Add Urine Culture? Yes
[2022-07-05 00:04] VITALS: BP 171/68; PULSE 66; RESP 18; O2SAT 98
[2022-07-05] MEDS: phenazopyridine 100 mg Tablet PO (00:13)
[2022-07-05] MEDS: cefdinir 300 MG CAPSULE PO (00:13)
[2022-07-05 00:21] VITALS: BP 156/65; PULSE 63; RESP 18; O2SAT 93
--- NOTE | 2022-07-05 04:48 | W.ED.FEMALGU ---
HPI - Female Genitourinary General: Chief complaint: Urogenital-Female Stated complaint: blood in urine Time Seen by Provider: 07/04/22 23:17 Source: patient History of Present Illness: 77-year-old female with onset of dysuria and bloody urine. She is on anticoagulants. She has some mild low back pain. No significant abdominal pain. No vomiting or fever. She is able to empty her bladder she believes, but it is painful to do so. No passage of clots. MD elicited complaint: dysuria and difficulty urinating Pertinent past history: recurrent UTIs Onset (ago): minute(s) Location of symptoms: external genitalia, suprapubic and low back Severity: moderate Female Urogenital Radiation: Non-Radiating Quality of pain: cramping Consistency: constant Vaginal discharge: none Vaginal bleeding: none Associated symptoms: Deny abdominal pain, nausea or vaginal discharge Review of Systems Eyes: Denies: change in vision ENMT: Denies: throat pain Card: Denies: chest pain Resp: Denies: dyspnea GI: Denies: abdominal pain, nausea or vomiting : Reports: difficulty voiding, dysuria and urinary frequency; Denies: flank pain or vaginal discharge PFSH ED PFSH: Medical History Atrial fibrillation Dyslipidemia Hx of cardiac pacemaker Hypothyroidism Ischemic stroke Recurrent UTI Supraventricular tachycardia Tachyarrhythmia Urinary incontinence Uterovaginal prolapse Surgical History History of cardiac cath History of vaginal hysterectomy Hx of cholecystectomy Hx of tubal ligation Family History Father CAD (coronary artery disease) Mother Cancer MALIGNANT NEOPLASM OF LIVER, PRIMARY Hypertension Social History Smoking and tobacco status: never smoked Alcohol intake: never Marital status: / Current occupational status: retired Physical Exam Const: COMMON NORMALS: no acute distress GENERAL APPEARANCE: cooperative; not ill appearing and not frail appearing HENMT: COMMON NORMALS: normocephalic, atraumatic and Normal external nose present HEAD & SCALP: normocephalic and atraumatic FACE & SINUS: normal facial exam and face symmetric NOSE: Normal external nose present Eye: COMMON NORMALS: Equal, round and reactive pupils present and EOMs intact bilaterally PUPIL: Yes Equal, round and reactive pupils present Neck/C-Spine: GENERAL: Yes trachea midline Chest: CHEST: Yes Symmetrical chest wall rise Resp: COMMON NORMALS: normal respiratory effort, No retractions, No use of accessory muscles and clear to auscultation bilaterally AUSCULTATION: clear to auscultation bilaterally Cardio: COMMON NORMALS: regular rate and regular rhythm RATE: regular rate RHYTHM: regular rhythm GI: COMMON NORMALS: Normal to inspection, nondistended, normoactive bowel sounds present Extremity: COMMON NORMALS: no pedal edema Neuro: [place] COMA SCALE: document GCS findings [place] coma scale eye opening: Spontaneous [place] coma scale verbal response: Orientated [place] coma scale motor response: [place]bey commands [place] coma scale total score: 15 SENSORY EXAM: Yes extremities (intact) Psych: COMMON NORMALS: speech normal SPEECH: Yes normal speech Skin: COMMON NORMALS: no rashes or lesions noted GENERAL SKIN EXAM: no rashes or lesions noted Course Vital Signs: Vital signs: Vital Signs Temperature 98.1 F 07/04/22 21:01 Pulse Rate 63 07/05/22 00:21 Respiratory Rate 18 07/05/22 00:21 Blood Pressure 156/65 07/05/22 00:21 Pulse Oximetry 93 07/05/22 00:21 Oxygen Delivery Me thod 07/05/22 00:04 MDM - Female Medical Decision Making Postvoid residual by bladder scan did not reveal a significant amount of urine in the bladder. She is able to empty. She does have 80-100 white blood cells, 2+ leukocyte esterase along with some red blood cells. Her vitals are stable. She is not experiencing any abdominal or flank pain. She is treated with cefdinir, and will go home on several days of this to follow-up as an outpatient for repeat urinalysis. She understands, knows to return for any worsening symptoms Lab Data Laboratory Results Urine Color [place] (Yellow) 07/04/22 22:35 Urine Appearance Sl hazy (CLEAR) A 07/04/22 22:35 Urine pH 7 (5-7) 07/04/22 22:35 Ur Specific [place] 1.005 (1.005-1.030) 07/04/22 22:35 Urine Protein 1+ (Negative) H 07/04/22 22:35 Urine Glucose (UA) Norm (Normal) 07/04/22 22:35 Urine Ketones Negative (Negative) 07/04/22 22:35 Urine Blood 3+ (Negative) H 07/04/22 22:35 Urine Nitrate Negative (Negative) 07/04/22 22:35 Urine Bilirubin Neg (Negative) 07/04/22 22:35 Urine Urobilinogen Neg mg/dL (Negative) 07/04/22 22:35 Ur Leukocyte Esterase 2+ (Negative) H 07/04/22 22:35 Urine RBC >100 /hpf (0-2) H 07/04/22 22:35 Urine WBC 80-100 /hpf (0-5) H 07/04/22 22:35 Ur Squamous Epith Cells 0-4 /hpf (0-5) H 07/04/22 22:35 Ur Renal Epithelial Cell 0 /hpf 07/04/22 22:35 Amorphous Sediment Not Reportable 07/04/22 22:35 Urine Bacteria 1+ /hpf (NONE) H 07/04/22 22:35 Urine Mucus Trace /hpf 07/04/22 22:35 Discharge Plan Discharge Patient Disposition: Home Clinical Impression: Urinary tract infection Qualifiers: Urinary tract infection type: acute cystitis Hematuria presence: with hematuria Qualified Code(s): N30.01 - Acute cystitis with hematuria Condition: Stable Prescriptions: New cefdinir 300 mg capsule 300 mg PO BID Qty: 14 0RF Pyridium 100 mg tablet 100 mg PO Q8H PRN (Reason: pain) Qty: 5 0RF Discontinued ciprofloxacin HCl [Cipro] 500 mg tablet 500 mg PO BID Qty: 10 0RF No Action levothyroxine 75 mcg tablet 75 mcg PO DAILY melatonin 3 mg capsule 3 mg PO BEDTIME cetirizine [Zyrtec] 10 mg tablet 10 mg PO DAILY PRN (Reason: Allergy Symptoms) levetiracetam [Keppra] 500 mg tablet 500 mg PO BID fluticasone propionate [Allergy Relief (fluticasone)] 50 mcg/actuation spray,suspension 2 spray intranasal DAILY PRN (Reason: allergy symptoms) Qty: 16 0RF Rx Instructions: administer into each nostril albuterol sulfate [Ventolin HFA] 90 mcg/actuation HFA aerosol inhaler 2 puff inhalation Q6H PRN (Reason: shortness of breath or wheezing) Qty: 8.5 0RF phenylephrine HCl [Nasal Decongestant (PE)] 10 mg tablet 10 mg PO Q6H PRN (Reason: nasal congestion) Qty: 12 0RF Eliquis 5 mg tablet 5 mg PO BID Qty: 180 3RF atorvastatin 80 mg tablet 80 mg PO DAILY Qty: 90 3RF losartan 100 mg tablet 100 mg PO DAILY Qty: 90 3RF pantoprazole 40 mg tablet,delayed release (DR/EC) 40 mg PO DAILY Qty: 90 3RF diltiazem HCl 120 mg capsule,extended release 12 hr 120 mg PO BID Qty: 180 0RF Zoloft 50 mg tablet 25 mg PO DAILY Qty: 1 0RF metoprolol tartrate 25 mg tablet 25 mg PO BID Qty: 90 3RF Aspirin Childrens 81 mg tablet,chewable 81 mg PO DAILY Qty: 14 0RF Discharge Orders: Discharge ED (Routine); Ordered 07/05/22 Ordered By: [place] Referrals: Sam Manriquez MD [Primary Care Provider] - 4-7 days Patient Instructions: Urinary Tract Infection in Women (ED) Activity Restrictions/Additional Instructions: Return for fever greater than 100 despite 2-3 doses of antibiotics, worsening pain, worsening bleeding with passage of clots, worsening mental status, any other concerning symptoms. Coding Level of Care Code ED Rotary Drier for Yudy Miranda
== END 2022-07-05 00:23 | disposition home or self-care (01) ==
PROVIDERS: Emergency Medicine; Emergency Provider Emergency Medicine; PCP Family Medicine
DX: N30.01 Acute cystitis with hematuria (principal); Z79.82 Long term (current) use of aspirin; Z79.01 Long term (current) use of anticoagulants; E78.5 Hyperlipidemia, unspecified; Z95.0 Presence of cardiac pacemaker; Z86.73 Personal history of transient ischemic attack (TIA), and cerebral infarction without residual deficits; Z87.440 Personal history of urinary (tract) infections
CPT/HCPCS: 51798; 81001; 87086; 99283

== ENCOUNTER → 2022-09-30 14:36 | Outpatient (BNVA) | payer MEDICARE, OTHER, SELFPAY | PROVIDERS: PCP Family Medicine; Visit Provider Internal Medicine | DX: I48.91 Unspecified atrial fibrillation (principal); I10 Essential (primary) hypertension; Z95.0 Presence of cardiac pacemaker; Z86.73 Personal history of transient ischemic attack (TIA), and cerebral infarction without residual deficits; Z79.01 Long term (current) use of anticoagulants | CPT/HCPCS: 99214 ==

== ENCOUNTER → 2023-04-14 12:57 | Outpatient (BNVA) | payer MEDICARE, OTHER, SELFPAY | PROVIDERS: PCP Family Medicine; Visit Provider Internal Medicine Cardiovascular Disease | DX: I48.91 Unspecified atrial fibrillation (principal); R77.8 Other specified abnormalities of plasma proteins; R53.1 Weakness; Z95.0 Presence of cardiac pacemaker; I10 Essential (primary) hypertension; Z86.73 Personal history of transient ischemic attack (TIA), and cerebral infarction without residual deficits; Z79.01 Long term (current) use of anticoagulants | CPT/HCPCS: 99213 ==

== ENCOUNTER → 2023-10-14 11:17 | Outpatient (BNVA) | payer MEDICARE, OTHER, SELFPAY | PROVIDERS: PCP Family Medicine; Visit Provider Internal Medicine Cardiovascular Disease | DX: I10 Essential (primary) hypertension (principal); Z95.0 Presence of cardiac pacemaker; I48.91 Unspecified atrial fibrillation; Z86.73 Personal history of transient ischemic attack (TIA), and cerebral infarction without residual deficits | CPT/HCPCS: 99213 ==

== ENCOUNTER → 2024-07-26 09:44 | Outpatient (BNVA) | payer MEDICARE, OTHER, SELFPAY | PROVIDERS: PCP Family Medicine; Visit Provider Internal Medicine Cardiovascular Disease | DX: Z45.018 Encounter for adjustment and management of other part of cardiac pacemaker (principal) | CPT/HCPCS: 93296 ==

== ENCOUNTER → 2024-10-12 12:34 | Outpatient (BNVA) | payer MEDICARE, OTHER, SELFPAY | PROVIDERS: PCP Family Medicine; Visit Provider Internal Medicine | DX: I48.91 Unspecified atrial fibrillation (principal); Z79.01 Long term (current) use of anticoagulants; I10 Essential (primary) hypertension; Z95.0 Presence of cardiac pacemaker; Z86.73 Personal history of transient ischemic attack (TIA), and cerebral infarction without residual deficits | CPT/HCPCS: 99214 ==

== ENCOUNTER → 2024-11-01 10:47 | Outpatient (BNVA) | payer MEDICARE, OTHER, SELFPAY | PROVIDERS: PCP Family Medicine; Visit Provider Nurse Practitioner Family | DX: I95.9 Hypotension, unspecified (principal); I48.91 Unspecified atrial fibrillation; Z79.01 Long term (current) use of anticoagulants; I10 Essential (primary) hypertension; Z95.0 Presence of cardiac pacemaker; Z86.73 Personal history of transient ischemic attack (TIA), and cerebral infarction without residual deficits | CPT/HCPCS: 99214 ==

== ENCOUNTER → 2024-12-20 11:54 | Outpatient (BNVA) | payer MEDICARE, OTHER, SELFPAY | PROVIDERS: PCP Family Medicine; Visit Provider Internal Medicine | DX: Z45.018 Encounter for adjustment and management of other part of cardiac pacemaker (principal) | CPT/HCPCS: 93296 ==

== ENCOUNTER → 2025-01-17 10:09 | Outpatient (BNVA) | payer MEDICARE, OTHER, SELFPAY | PROVIDERS: PCP Family Medicine; Visit Provider Internal Medicine | DX: I20.0 Unstable angina (principal); I10 Essential (primary) hypertension; Z95.0 Presence of cardiac pacemaker; I48.91 Unspecified atrial fibrillation; Z86.73 Personal history of transient ischemic attack (TIA), and cerebral infarction without residual deficits; Z79.01 Long term (current) use of anticoagulants | CPT/HCPCS: 36415; 80048; 85025; 85610; 99214 ==

== ENCOUNTER 2025-02-01 07:14 | Outpatient (CLI) | payer MEDICARE, OTHER, SELFPAY ==
[2025-02-01] VITALS (26 sets, daily range): BP systolic 122–167; BP diastolic 52–98; PULSE 50–78; RESP 12–25; TEMP 36.5–36.6; O2SAT 92–100; BMI 23.0
--- NOTE | 2025-02-01 07:30 | XACV_ITS ---
Exam Room: 2 Ht: 160 cm Wt: 59 kg BSA: 1.63 m2 Gender: Female : 1945 Any Known Allergies: No known allergies Exam Priority: Routine Procedure(s): Procedure Description: Diagnostic procedure Procedure Description: PCI procedure Procedure Description: Drug Eluting Coronary Stent Procedure Description: PTCA Procedure Description: Miscellaneous Procedure Description: ACT Procedure Description: Coronary Angiography Diagnostic Cath Status: Elective Diagnostic Findings * Left Main has no significant disease. * Circumflex has is a large sized dominant vessel with mild luminal irregularities. * Right Coronary Artery is small sized, non-dominant artery. Mild to moderate luminal irregularities. * Proximal LAD has mild 30% stenosis. Mid Left Anterior Descending: severe 80% stenosis, GIORGI: 3 flow. * Coronary angiography shows left dominance. PCI Status: Elective PCI Indication: Other Interventional Findings * Mid Left Anterior Descendin% stenosis treated with a AB TREK 2.50X15 RX BALLOON, ANA BLACKMON EUPHORA RX [id number] BALLOON, and ANA Petersen ELBERT 2.75X26 NEENA. * Procedure detal: Patient had 70-80% stenosis in the mid LAD which is culprit lesion for accelerating angina. Attempt at iFR wiring was not successful given degree of stenosis and calcification. We then decided to proceed with PCI given typical, worsening symptoms and more then 70% stenosis. Run-through guidewire was used to cross the stenosis. We pre-dilated the stenosis with 2.5x15 mm semi compliant balloon. This was followed by placement of [id number] Resolute elbert NEENA. There was plaque shift into the diagonal artery. We treated that by balloon angioplasty of diagonal artery ostium with 2.25x15 mm semi compliant balloon. IVUS was performed that showed significant underexpansion in the mid-segment. We post dilated the stent with [id number] NC balloon at high pressure of 24atm. At this final angiogram was performed that showed excellent stent expansion and no residual stenosis. 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 * 2nd Diagonal: 70% stenosis treated with a AB TREK 2.25X15 RX BALLOON. Conclusions 1. Severe mid LAD stenosis s/p PCI with 1 stent and balloon angioplasty of diagonal artery that had plaque shift post LAD PCI. 2. Mid Left Anterior Descending was treated with a Balloon, Balloon, and Drug Eluting Stent. 3. 2nd Diagonal was treated with a Balloon. Recommendations * Patient will be discharged home on eliquis and plavix. * High intensity statin therapy. * Outpatient cardiology follow up in 2 weeks. Interventional RX Recommendation: PCI w/o planned CABG Diagnostic RX Recommendation: PCI w/o planned CABG Anticoagulation: Heparin Pressures Phase:Rest AO : 105 / 64 ( 84 ) @ 9:52:00 AM 122 / 54 ( 83 ) @ 10:05:00 AM 140 / 70 ( 103 ) @ 10:33:00 AM 169 / 74 ( 116 ) @ 10:45:00 AM Clinical Evaluation EBL: 5mL-10mL Procedural Details Procedure Consent Obtained. Pre-Procedure Time Out. Identified patient by full name and date of as verbalized by the patient/guarantor. Does the consent match the physician's order: Yes. Accurate & Complete Informed Consent: Yes. Inpatient/Outpatient History & Physical on Chart: Yes. If H&P is completed, is and addenduem needed: No; If yes, is the addendum complete: N/A. Visualize and Verify Site with Patient/Guarantor: N/A. Relevant Radiology Images available: Yes. The risks, benefits, and alternatives of sedation and/or procedure were discussed by physician. The patient agrees to continue. Procedure started. [facility] Clinical Fraility Score: 4: Vulnerable. 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 Chest Pain Symptom Assessment: Typical Angina Symptoms. Cardiovascular Instability: No. Correct patient, site and procedure confirmed by cath team. PERRLA. Strong, equal hand ring packer bilaterally. Lungs clear x 5 lobes. IV Site on Arrival: 20 gauge in the left anticubital. IV Fluids: 0.9% NaCl at KVO. 0 mL infused prior to labor utilization superintendent. Pre Procedural Pulses: bilateral radial was 1+. Pre Procedural Pulses: bilateral posterior tibial was Doppled. Pre Procedural Pulses: right posterior tibial was 3+. Pre Procedural Pulses: right dorsalis pedis was 1+. Pre Procedural Pulses: left dorsalis pedis was 1+. Oxygen started at 2liters/min via nasal canula. right groin was prepped with chloroprep then draped in the usual sterile fashion. right radial was prepped with chloroprep then draped in the usual sterile fashion. Physician notified. Patient's family in the labor utilization superintendent waiting room. Dr. Pradhan will update at the completion of the procedure. Equipment: 6F - Radial. Cardiac Cath Pack. ACIST Manifold Kit Model BT 2000. Heparinized Saline (2 units/mL), 1000 mL bag. Baseline sample Acquired. HR: 58 BPM. Physician arrived. Physician scrubbed in. Immediate Pre-Procedure Time Out. Correct Patient: Yes; Correct Procedure: Yes; Correct Site: Yes; Correct Patient Position: Yes; Correct Supplies: Yes; Dried Flammable Prep: Yes; Blood Products Available: N/A;. Lidocaine 1% infiltrated to the right radial. Arterial access obtained. A 5 prydeinig TIG catheter in over the exchange J wire. Multiple views taken of left coronary artery. Catheter redirected to the RCA. Multiple views taken of right coronary artery. Catheter removed over the exchange J wire. 6 prydeinig XB 3 guide catheter was inserted over the exchange J wire. iFR wire in. iFR wire in. Exchange J wire in to reseat guide catheter. Exchange J wire out. Guide catheter out over the exchange J wire. 6 prydeinig JL 3.5 guide catheter was inserted over the the exchange J wire. Runthrough guidewire was advanced through the guide catheter to lesion in the mid LAD. iFR wire unable to cross, wire out. IVUS catheter in OTW. IVUS catheter unable to cross, removed OTW. Inflation number : 1 A AB TREK 2.50X15 RX BALLOON was prepped and advanced across the Mid LAD , then inflated to 8 DENYS for 0:08 seconds. Inflation number: 2 The AB TREK 2.50X15 RX BALLOON was reinflated across the Mid LAD, to 8 DENYS for 0:08 seconds. Inflation number: 3 The AB TREK 2.50X15 RX BALLOON was reinflated across the Mid LAD, to 8 DENYS for 0:05 seconds. Balloon out. Results checked. Resolute Sherwood 2.75mm x 26mm NEENA in, unable to cross, removed intact. Guideliner in OTW. Resolute Elbert 2.75mm x 26mm NEENA in, unable to cross, removed intact. Inflation number : 4 A MDT NC EUPHORA RX [id number] BALLOON was prepped and advanced across the Mid LAD , then inflated to 12 DENYS for 0:07 seconds. Inflation number: 5 The MDT NC EUPHORA RX [id number] BALLOON was reinflated across the Mid LAD, to 14 DENYS for 0:13 seconds. Inflation number: 6 The MDT NC EUPHORA RX [id number] BALLOON was reinflated across the Mid LAD, to 14 DENYS for 0:10 seconds. Balloon out. Inflation Number : 7 A MDT R ELBERT 2.75X26 NEENA -Lot Number# [id number] Exp. was prepped and advanced across the Mid LAD. The stent was deployed at 12 DENYS for 0:19 seconds. Stent balloon out over wire. Results checked. Runthrough guidewire was advanced through the guide catheter to lesion in the diaganol. Guideliner out OTW. Trex 2.5mm x 15mm balloon in, unable to cross 2nd diagonal, removed. Inflation number : 1 A AB TREK 2.25X15 RX BALLOON was prepped and advanced across the 2nd Diag , then inflated to 8 DENYS for 0:14 seconds. Balloon out. IVUS catheter in OTW. IVUS of the Mid LAD performed. IVUS catheter out. Inflation number: 8 The MDT NC EUPHORA RX 2.75P39RI BALLOON was reinflated across the Mid LAD, to 14 DENYS for 0:08 seconds. Inflation number: 9 The MDT NC EUPHORA RX [id number] BALLOON was reinflated across the Mid LAD, to 24 DENYS for 0:16 seconds. Balloon out. IVUS catheter in OTW. IVUS of the Mid LAD performed. IVUS catheter out. Runthrough guidewire out of 2nd Diagonal. Results checked. Wire out. ACT drawn. Results 279 seconds. Therapeutic limits - pre-heparin administration 90-150 seconds and monitoring heparin during a vascular procedure >250 seconds. Guide catheter out over the exchange J wire. Dr. Pradhan scrubbed out. A TR Band was successful obtaining hemostatsis at the Right Radial artery insertion site. Vital chart was stopped. Post Procedure: Pulses reassessed and unchanged. PERRLA. Strong, equal hand ring packer bilaterally. No VTE prophylaxis required. Medication's Wasted: Lidocaine 1% = 18 mL. Medication's Wasted: Nitro = 49.3 mg. Medication's Wasted: Other = Fentanyl 50 mcg. Total IV fluids: 50. mL. PCI Indication: CAD (without ischemic symptoms). Post-op diagnosis: NEENA x 1 to Mid LAD, POBA ostial 2nd Diagonal. Complications: none. Estimated blood loss: 5mL-10mL. Responsiveness - Normal response to verbal stimuli; alert and oriented, PERRLA. Airway - Unaffected, no intervention required; spontaneous ventilation. Circulation: W/N/L, pulses unchanged. Nausea/Vomiting: No. Procedure completed. Patient transferred by wheelchair to 1st floor. Access Site Site: Right Radial artery Sheath Size: 6 Fr Hemostasis Method: TR Band Hemostasis Success: Successful Procedure Medications Start: 8:47 AM Stop: 8:47 AM Medication: Versed Amount: 1 mg Route: I.V. Start: 8:47 AM Stop: 8:47 AM Medication: Fentanyl Amount: 25 mcg Route: I.V. Start: 8:50 AM Stop: 8:50 AM Medication: Nitrogylcerin Amount: 200 mcg Route: I.A. Start: 8:51 AM Stop: 8:51 AM Medication: Heparin Amount: 5000 units Route: I.V. Start: 8:55 AM Stop: 8:55 AM Medication: Nitrogylcerin Amount: 200 mcg Route: I.A. Start: 9:02 AM Stop: 9:02 AM Medication: Nitrogylcerin Amount: 100 mcg Route: I.A. Start: 9:14 AM Stop: 9:14 AM Medication: Heparin Amount: 1000 units Route: I.V. Start: 9:16 AM Stop: 9:16 AM Medication: Versed Amount: 1 mg Route: I.V. Start: 9:32 AM Stop: 9:32 AM Medication: Fentanyl Amount: 25 mcg Route: I.V. Start: 9:48 AM Stop: 9:48 AM Medication: Nitrogylcerin Amount: 200 mcg Route: I.C. Start: 9:51 AM Stop: 9:51 AM Medication: Nitrogylcerin Amount: 1 Sprays Route: S.L. Start: 9:54 AM Stop: 9:54 AM Medication: Plavix Amount: 600 mg Route: P.O. I, the attending physician, have reviewed and verified all procedure medications. Yes, all medications given per verbal order History/Risk Factors Hypertension: Yes Dyslipidemia: Yes Peripheral Arterial Disease (PAD): No Myocardial Infarction (KS): No Obesity: No Renal Disease: No Tobacco Use: Never Prior Interventions PCI: No CABG: No Valve Surgery: No Report Signatures Finalized by Isac Pradhan MD on 02/10/2025 10:35 PM
[2025-02-01 08:32] LABS: Anion Gap 14.9 (5-19); Blood Urea Nitrogen 13 mg/dL (8-23); Calcium 8.8 mg/dL (8.5-10.5); Carbon Dioxide 25 mmol/L (22-29); Chloride 102 mmol/L (98-107); Creatinine Clr Calc Pharmacy 39.6269; Glucose 112 mg/dL (65-115); Osmolality Calculated 287 mOsm/kg (285-295); Potassium 3.9 mmol/L (3.5-5.1); Sodium 138 mmol/L (136-145)
--- NOTE | 2025-02-01 08:45 | W.PM.OPSUD ---
Surgery/Procedure H&P Update DATE OF PROCEDURE: February 01, 2025 DATE H&P PERFORMED: 02/01/25 H&P UPDATE INFORMATION: I have reviewed H&P completed within last 30 days, I have examined patient prior to procedure and No changes to prior documentation PREOP DIAGNOSIS: Worsening angina PRIMARY INDICATION FOR PROCEDURE: Worsening angina PLANNED PROCEDURE: Operation Date: 02/01/25 08:30 Proposed Procedures p Cardiac Catheterization - [facility] w/wo LV & Coros(Left) - Isac Pradhan M.D Possible percutaneous coronary intervention PATIENT REASSESSED PRIOR TO SEDATION, WITH NO CHANGE NOTED: Yes PHYSICAL EXAM: alert, oriented x 3, clear to auscultation bilaterally and regular rate & rhythm AIRWAY EVAL/ANESTHESIA PLAN: normal airway, ASA III, Local Anesthesia, Risks, benefits & alternatives of sedation and/or procedure discussed and Patient agrees to continue as planned ADDITIONAL INFORMATION: Moderate sedation
--- NOTE | 2025-02-01 10:08 | P.PCN_ITS ---
Procedure Note: Date of procedure: 02/01/25 Pre-procedure diagnosis: Worsening angina Post-procedure diagnosis: other (Severe mid LAD stenosis status post PCI with 1 stent) Procedure: Severe mid LAD stenosis. Status post PCI with 1 stent. Patent large size dominant left circumflex artery. Patent small nondominant RCA. Loaded with Plavix 600 mg. At time of discharge we will send patient home on Eliquis and Plavix. High intensity statin therapy. Outpatient cardiology follow-up in 2 weeks Performing Provider: Isac Pradhan Complications: None Condition: stable Disposition: floor Coding Level of Care Code [facility]
[2025-02-01] MEDS: LOSARTAN 25 MG TABLET PO (18:33)
[2025-02-02 02:56] LABS: Hematocrit 34.9 % (36-47); Hemoglobin 11.70 g/dL (11.27-16.99); Mean Corpuscular HGB Conc 33.5 g/dL (30-55); Mean Corpuscular Hemoglobin 31.9 pg (27-33); Mean Corpuscular Volume 95.1 fl (85-98); Nucleated Red Blood Cells % 0 %; Platelet Count 177 10^3/cmm (157-399); Red Blood Count 3.67 10^6/uL (3.85-5.65); White Blood Count 8.12 10^3/uL (3.29-11.43)
[2025-02-02 03:16] LABS: Anion Gap 16.8 (5-19); Blood Urea Nitrogen 14 mg/dL (8-23); Calcium 8.5 mg/dL (8.5-10.5); Carbon Dioxide 23 mmol/L (22-29); Chloride 103 mmol/L (98-107); Creatinine Clr Calc Pharmacy 36.0245; Glucose 105 mg/dL (65-115); Osmolality Calculated 289 mOsm/kg (285-295); Potassium 3.8 mmol/L (3.5-5.1); Sodium 139 mmol/L (136-145)
[2025-02-02 08:06] VITALS: BP 139/67; PULSE 64; RESP 22; TEMP 36.5; O2SAT 99
[2025-02-02] MEDS: LOSARTAN 25 MG TABLET PO (08:43)
--- NOTE | 2025-02-02 09:40 | P.DS_ITS ---
<Statement entered by Isac Pradhan M.D - 02/08/25 09:38> Patient was cared for in conjunction with an advanced practice practitioner.? I reviewed the chart and all pertinent data including imaging, telemetry, and laboratory results.? I discussed the patient in detail with the advanced practice practitioner.? Please see?their note for discharge summary, testing results and agreed upon plan of care for the patient. Discharge Providers Date of Admission: 02/01/2025 Date of Discharge: February 02, 2025 Attending Provider at Admission: Isac Pradhan M.D Attending Provider at Discharge: Isac Pradhan M.D Primary Care Provider: Sam Manriquez MD Reason for Visit Reason for Visit: I20.0 Brief History: Alyson Loaiza is a 79-year-old female with past medical history hypertension, stroke 2019, atrial fibrillation, pacemaker placement in 2019. Due to episodes of significant angina, coronary angiogram was recommended. Hospital Course Hospital Course She was brought to the hospital yesterday for coronary angiogram due to worsening angina, which revealed significant mid LAD stenosis treated with NEENA x 1. No other significant stenosis. She has done well overnight, no recurrence of chest pain. No complications with that radial cath site. Creatinine 1.1 today, baseline 1.0. She will restart Eliquis and continue Plavix, discharge home today. Continue atorvastatin 80 mg daily. Follow-up in cardiology clinic in 2 weeks. Physical Exam Const: COMMON NORMALS: no acute distress and patient oriented x3 GENERAL APPEARANCE: cooperative ORIENTATION/CONSCIOUSNESS: Yes awake, Yes oriented to person, Yes oriented to place and Yes oriented to time Chest: COMMONS NORMALS: normal inspection of the chest and normal palpation of entire chest wall CHEST: Yes Symmetrical chest wall rise Resp: COMMON NORMALS: normal respiratory effort, No retractions, No use of accessory muscles and clear to auscultation bilaterally AUSCULTATION: clear to auscultation bilaterally Cardio: COMMON NORMALS: regular rate, regular rhythm, S1 normal heart sound present, S2 normal heart sound present, No gallops present (Cardio), No clicks present (Cardio), No murmurs present (Cardio) and No rub (Cardio) RATE: regular rate RHYTHM: regular rhythm HEART SOUNDS: S1 normal heart sound present and S2 normal heart sound present PERIPHERAL PULSES: radial pulses present positive right 2+ and femoral pulses present positive right 2+ Neuro: COMMON NORMALS: patient oriented x3 and moves all extremities SENS ORIUM/ORIENTATION: Yes oriented to person, Yes oriented to place and Yes oriented to time Skin: WOUNDS: Yes surgical site (no hematoma palpable) Details: no odor Discharge Data Studies Completed and Pending Pending at discharge Category Date Time Status 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 Routine Exams 02/01/25 07:30 Ordered Laboratory Results WBC 8.12 10^3/uL (3.29-11.43) 02/02/25 02:40 RBC 3.67 10^6/uL (3.85-5.65) L 02/02/25 02:40 Hgb 11.70 g/dL (11.27-16.99) 02/02/25 02:40 Hct 34.9 % (36-47) L 02/02/25 02:40 MCV 95.1 fl (85-98) 02/02/25 02:40 MCH 31.9 pg (27-33) 02/02/25 02:40 MCHC 33.5 g/dL (30-55) 02/02/25 02:40 RDW 13.4 % (12.1-15.1) 02/02/25 02:40 Plt Count 177 10^3/cmm (157-399) 02/02/25 02:40 MPV 10.3 fL (7.4-10.4) 02/02/25 02:40 Neut % (Auto) 49.9 % 02/02/25 02:40 Lymph % (Auto) 39.9 % 02/02/25 02:40 Arroyo % (Auto) 8.9 % 02/02/25 02:40 Eos % (Auto) 0.4 % 02/02/25 02:40 Baso % (Auto) 0.2 % 02/02/25 02:40 Neut # (Auto) 4.05 10^3/uL (1.8-7.7) 02/02/25 02:40 Lymph # (Auto) 3.2 10^3/uL (0.8-4.8) 02/02/25 02:40 Arroyo # (Auto) 0.7 10^3/uL (0.2-0.9) 02/02/25 02:40 Eos # (Auto) 0.0 10^3/uL (0.0-0.8) 02/02/25 02:40 Baso # (Auto) 0.0 10^3/uL (0.0-0.1) 02/02/25 02:40 Nucleated RBC % (auto) 0 % 02/02/25 02:40 Nucleated RBCs # 0.0 /100WBC 02/02/25 02:40 Sodium 139 mmol/L (136-145) 02/02/25 02:40 Potassium 3.8 mmol/L (3.5-5.1) 02/02/25 02:40 Chloride 103 mmol/L (98-107) 02/02/25 02:40 Carbon Dioxide 23 mmol/L (22-29) 02/02/25 02:40 Anion Gap 16.8 (5-19) 02/02/25 02:40 BUN 14 mg/dL (8-23) 02/02/25 02:40 Creatinine 1.1 mg/dL (0.5-0.9) H 02/02/25 02:40 GFR Calculation Not Reportable 02/02/25 02:40 Glucose 105 mg/dL (65-115) 02/02/25 02:40 Calculated Osmolality 289 mOsm/kg (285-295) 02/02/25 02:40 Calcium 8.5 mg/dL (8.5-10.5) 02/02/25 02:40 Vitals Last Vital Signs Temp 97.7 F 02/02/25 08:06 Pulse 64 02/02/25 08:06 Resp 22 H 02/02/25 08:06 BP 139/67 02/02/25 08:06 Pulse Ox 99 02/02/25 08:06 O2 Del Method Room Air 02/02/25 08:06 Discharge Plan Discharge Patient Disposition: Home Prescriptions: New clopidogrel 75 mg Tablet 75 mg PO DAILY Qty: 90 3RF Continued levothyroxine 75 mcg tablet 75 mcg PO DAILY melatonin 3 mg capsule 3 mg PO BEDTIME cetirizine [Zyrtec] 10 mg tablet 10 mg PO DAILY PRN (Reason: Allergy Symptoms) levetiracetam [Keppra] 500 mg tablet 500 mg PO BID albuterol sulfate [Ventolin HFA] 90 mcg/actuation HFA aerosol inhaler 2 puff inhalation Q6H PRN (Reason: shortness of breath or wheezing) Qty: 8.5 0RF cholecalciferol (vitamin D3) 125 mcg (5,000 unit) capsule 125 mcg PO DAILY losartan 50 mg tablet 25 mg PO BID pantoprazole 40 mg tablet,delayed release (DR/EC) See Rx Instructions .ROUTE .COMPLEX Qty: 90 3RF Dose Instruction: Take 1 tablet by mouth once daily Rx Instructions: Take 1 tablet by mouth once daily metoprolol tartrate 25 mg tablet See Rx Instructions .ROUTE .COMPLEX Qty: 90 3RF Dose Instruction: Take 1/2 (one-half) tablet by mouth twice daily Rx Instructions: Take 1/2 (one-half) tablet by mouth twice daily Eliquis 5 mg tablet See Rx Instructions .ROUTE .COMPLEX Qty: 180 3RF Dose Instruction: Take 1 tablet by mouth twice daily Rx Instructions: Take 1 tablet by mouth twice daily atorvastatin 80 mg tablet See Rx Instructions .ROUTE .COMPLEX Qty: 90 3RF Dose Instruction: Take 1 tablet by mouth once daily Rx Instructions: Take 1 tablet by mouth once daily sertraline [Zoloft] 50 mg tablet 25 mg PO DAILY Qty: 1 0RF Discontinued enoxaparin [Lovenox] 60 mg/0.6 mL syringe 60 mg SUBCUT DIRECTED Qty: 2.4 0RF Rx Instructions: 01/28/25 last dose of Eliquis 01/29/25 one injection AM & PM 01/30/25 one injection AM & PM Discharge Order = DC NOW: Discharge Order (Routine); Ordered 02/02/25 Ordered By: Heavenly Mata Referrals: You Mcgill MD [Physician, Cardiology] - 02/22/25 9:30 am Sam Manriquez MD [Primary Care Provider, Family Practice] - 02/05/25 8:10 am Diet: Cardiac Activity: Increase activity as tolerated Patient Instructions: Clopidogrel (By mouth), Coronary Angioplasty (DC), Cardiac Rehabilitation (DC), Coronary Intravascular Stent Placement (DC), Post Angiogram Home Care Instructions Activity Restrictions/Additional Instructions: No lifting over 5 pounds with the right arm for 4 days. Print Language: Ecuadorean Discharge Date/Time: 02/02/25 12:03 Discharge Attestations Time Spent in Discharge Care*: less than 30 min Status at Discharge: Cognitive status at discharge: cognitively intact , Behavioral status at discharge: cooperative , Quality Metrics Clinical Quality Measures [ No reported AMI, CVA or VTE this stay] Coding Level of Care Code Acute Code for [facility] Fwd
--- NOTE | 2025-02-02 12:08 | PC.NURSE ---
Patient provided with follow up instructions as well as all follow appointments IV removed by primary nurse patient verbalized understanding of instructions and asked that if i would call her plavix into [facility] instead of the main campus pharmacy
== END 2025-02-02 12:03 | disposition home or self-care (01) ==
LOC: CCL 07:20 → CSU 10:25
PROVIDERS: Nurse Practitioner Family; PCP Family Medicine; Visit Provider Internal Medicine
DX: I25.118 Atherosclerotic heart disease of native coronary artery with other forms of angina pectoris (principal); I10 Essential (primary) hypertension; E78.5 Hyperlipidemia, unspecified; K21.9 Gastro-esophageal reflux disease without esophagitis; Z79.01 Long term (current) use of anticoagulants; E03.9 Hypothyroidism, unspecified; Z95.0 Presence of cardiac pacemaker; R00.0 Tachycardia, unspecified
CPT/HCPCS: 36415; 80048; 85025; 85347; 92921; 92978; 93454; 93458; 99152; 99153; C1725; C1753; C1769; C1874; C1887; C1894; C9600; J1644; J2250; J3010; J3490; J7030; J9999; Q0163; Q9967

== ENCOUNTER → 2025-02-22 09:29 | Outpatient (BNVA) | payer MEDICARE, OTHER, SELFPAY | PROVIDERS: PCP Family Medicine; Visit Provider Internal Medicine Cardiovascular Disease | DX: I25.10 Atherosclerotic heart disease of native coronary artery without angina pectoris (principal); I48.91 Unspecified atrial fibrillation; Z79.01 Long term (current) use of anticoagulants; R00.1 Bradycardia, unspecified; I10 Essential (primary) hypertension; Z95.0 Presence of cardiac pacemaker; Z95.5 Presence of coronary angioplasty implant and graft; Z86.73 Personal history of transient ischemic attack (TIA), and cerebral infarction without residual deficits | CPT/HCPCS: 99214 ==